=== PATIENT | female | born 1945 | race Caucasian/White ===

== ENCOUNTER 2021-01-18 07:19 | Day surgery (SDC) | payer MEDICARE, BC ==
[~2021-01-18 07:19] MED LIST: Lactated Ringers 1,000 ML IV SCH; Lidocaine 2% 5 ML SDV ONE; Propofol 200 MG/20 ML SDV ONE; Sodium Chloride 0.9% 10 ML SDV IV PRN; Sodium Chloride 0.9% 10 ML Syringe FLUSH PRN; Sodium Chloride 0.9% 2.5 ML Syringe FLUSH PRN; fentaNYL 100 MCG/2 ML SDV ONE
--- NOTE | 2021-01-18 07:58 | PCM.PREANE ---
Preanesthetic Assessment - Anesthesia/Transfusion/Family Hx Anesthesia History: Prior Anesthesia Without Reaction Family History of Anesthesia Reaction: No Transfusion History: No Prior Transfusion(s) - Review of Systems General: No Symptoms Pulmonary: No Symptoms Cardiovascular: No Symptoms Gastrointestinal: No Symptoms Neurological: No Symptoms Other: Reports: None - Physical Assessment NPO Status Date: 01/18/21 NPO Status Time: 06:30 Vital Signs: Last Vital Signs Temp 36.4 C 01/18/21 07:26 Pulse 62 01/18/21 07:26 Resp 15 01/18/21 07:26 BP 115/52 L 01/18/21 07:26 Pulse Ox 100 01/18/21 07:26 Height: 1.42 m Weight: 49.895 kg ASA Class: 3 Mental Status: Alert & Oriented x3 Airway Class: Mallampati = 2 Dentition: Reports: [place](s) Thyro-Mental Finger Breadths: 3 Mouth Opening Finger Breadths: 3 ROM/Head Extension: Full Lungs: Clear to Auscultation, Normal Respiratory Effort Cardiovascular: Regular Rate, Regular Rhythm - Allergies Allergies/Adverse Reactions: Allergies Allergy/AdvReac Type Severity Reaction Status Date / Time No Known Allergies Allergy Verified 01/12/21 09:16 - Acknowledgements Anesthesia Type Planned: MAC (The patient understands and accepts the anesthetic risks and benefits of MAC. All questions answered. Consent signed. ) Pt an Appropriate Candidate for the Planned Anesthesia: Yes Alternatives and Risks of Anesthesia Discussed w Pt/Guardian: Yes Pt/Guardian Understands and Agrees with Anesthesia Plan: Yes PreAnesthesia Questionnaire HEENT History: Reports: None Cardiovascular History: Reports: High Cholesterol, PVD (left femoral stent-on aspirin. STOPPED ASPIRIN 7 DAYS AGO.), Other (See Below) Other Cardiovascular History: "white coat syndrome", carotid artery stenosis- stable, asymptomatic, due for repeat Carotid Ultrasound February 2021. 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: Musculoskeletal History: Reports: Osteoporosis, Other (See Below) (osteomalacia, osteopenia) Neurological History: Reports: TIA (15 YEARS AGO) Psychiatric History: Reports: Anxiety, Depression, Other (See Below) (ALERT, oriented to person, place, and time.) Endocrine/Metabolic History: Reports: Hypothyroidism, Vitamin D Deficiency Hematologic History: Reports: None Immunologic History: Reports: None Oncologic (Cancer) History: Reports: Lymphoma Dermatologic History: Reports: None - Infectious Disease History Infectious Disease History: Reports: Chicken Pox, Mumps, Other (See Below) (COVID NEGATIVE (JANUARY 2021)) - Past Surgical History Head Surgeries/Procedures: Reports: None HEENT Surgical History: Reports: Cataract Surgery, LASIK Cardiovascular Surgical History: Reports: Vascular Surgery, Other (See Below) Other Cardiovascular Surgeries/Procedures: arterial stent placement-left groin Respiratory Surgical History: Reports: None GI Surgical History: Reports: Appendectomy, Colonoscopy, EGD, Other (See Below) Other GI Surgeries/Procedures: splenectomy for lymphoma, hx of exploratory laparotomy Female Surgical History: Reports: Section, Hysterectomy, Salpingo- Oophorectomy Endocrine Surgical History: Reports: None Neurological Surgical History: Reports: None Musculoskeletal Surgical History: Reports: None Oncologic Surgical History: Reports: Other (See Below) Other Oncologic Surgeries/Procedures: splenectomy Dermatological Surgical History: Reports: None - History Comment History Comment: etoh "2-3 x a year. - SUBSTANCE USE Tobacco Use Status *Q: Former Tobacco User (QUIT 15 years ago.) Tobacco Use Within Last Twelve Months: No Recreational Drug Use History: No - HOME MEDS Home Medications: Home Meds Aspirin 81 mg PO BRK 07/14/16 [History] Levothyroxine 75 mcg PO SUTUTHSA@07/14/16 [History] Sertraline HCl 50 mg PO DAILY 07/14/16 [History] atorvaSTATin Calcium [Atorvastatin Calcium] 40 mg PO BEDTIME 07/14/16 [History] Acyclovir 400 mg PO BID 05/26/18 [History] Levothyroxine [Synthroid] 25 mcg PO MOWEFR@05/26/18 [History] Biotin 5,000 mcg PO DAILY 01/12/21 [History] Cholecalciferol (Vitamin D3) [Vitamin D3] 1,000 units PO DAILY 01/12/21 [History] Denosumab [Prolia] 1 injection IM ASDIRECTED 01/12/21 [History] - CURRENT (IN HOUSE) MEDS Current Meds: Current Medications Lactated Ringer's (Ringers, Lactated) 1,000 mls @ 125 mls/hr IV ASDIRECTED [facility] Last Admin: 01/18/21 07:35 Dose: 125 mls/hr Documented by: Sodium Chloride (Sodium Chloride 0.9% 10 Ml Syringe) 10 ml FLUSH ASDIRECTED PRN PRN Reason: Keep Vein Open Sodium Chloride (Sodium Chloride 0.9% 2.5 Ml Syringe) 2.5 ml FLUSH ASDIRECTED PRN PRN Reason: Keep Vein Open Sodium Chloride (Sodium Chloride 0.9% 10 Ml Syringe) 10 ml FLUSH ASDIRECTED PRN PRN Reason: Keep Vein Open Sodium Chloride (Sodium Chloride 0.9% 2.5 Ml Syringe) 2.5 ml FLUSH ASDIRECTED PRN PRN Reason: Keep Vein Open Sodium Chloride (Sodium Chloride 0.9% 10 Ml Sdv) 10 ml IV ASDIRECTED PRN PRN Reason: IV Use Discontinued Medications Fentanyl (Fentanyl 100 Mcg/2 Ml Sdv) Confirm Administered Dose 100 mcg .ROUTE .STK-MED ONE Stop: 01/18/21 07:15 Lidocaine (Lidocaine 2% 5 Ml Sdv) Confirm Administered Dose 5 ml .ROUTE .STK-MED ONE Stop: 01/18/21 07:14 Propofol (Propofol 200 Mg/20 Ml Sdv) Confirm Administered Dose 200 mg .ROUTE .STK-MED ONE Stop: 01/18/21 07:15
[2021-01-18] MEDS ORDERED: Naloxone 0.4 MG/ML Syringe IVPUSH PRN (09:12)
[2021-01-18] MEDS ORDERED: Albuterol 0.083% 2.5 MG/3 ML Neb Soln NEB PRN (09:12)
[2021-01-18] MEDS ORDERED: 50% Dextrose in Water 50 ML Syringe IVPUSH PRN (09:12)
[2021-01-18] MEDS ORDERED: fentaNYL 100 MCG/2 ML SDV IVPUSH PRN (09:12)
[2021-01-18] MEDS ORDERED: EPINEPHrine 1:10,000 1 MG/10 ML Syringe IVPUSH PRN (09:12)
[2021-01-18] MEDS ORDERED: Atropine 0.1 MG/ML 10 ML Syringe IVPUSH PRN ×2 (09:12)
--- NOTE | 2021-01-18 09:30 | PCM.POSTAN ---
POST ANESTHESIA ASSESSMENT - MENTAL STATUS Mental Status: Alert, Oriented - VITAL SIGNS Vital Signs: Last Vital Signs Temp 36.4 C 01/18/21 07:26 Pulse 59 L 01/18/21 09:26 Resp 10 L 01/18/21 09:26 BP 133/53 L 01/18/21 09:26 Pulse Ox 95 01/18/21 09:26 - RESPIRATORY Respiratory Status: Respiratory Rate WNL, Airway Patent, O2 Saturation Stable - CARDIOVASCULAR CV Status: Pulse Rate WNL, Blood Pressure Stable - GASTROINTESTINAL GI Status: No Symptoms - PAIN Pain Score: 0 - POST OP HYDRATION Hydration Status: Adequate & Stable - OBSERVATIONS Free Text/Narrative:: No anesthesia problems
[2021-01-18 09:46] VITALS: BP 135/62; PULSE 58
--- NOTE | 2021-01-18 09:53 | PCM.OPNOTE ---
- General Post-Op/Procedure Note Date of Surgery/Procedure: 01/18/21 Operative Procedure(s): Sigmoidoscopy Findings: Unable to pass scope past 65cm due to tight corner and likely abdominal adhesions. Diverticulosis throughout sigmoid colon. Rectal polyp Pre Op Diagnosis: Screening colonoscopy Post-Op Diagnosis: Rectal polyp, diverticulosis Anesthesia Technique: [facility] [place] Primary Surgeon: Angelika Kraft Complications: Unable to complete full colonoscopy due to tight corner Condition: Good Free Text/Narrative:: Intake & Output 01/17/21 01/18/21 01/18/21 22:59 06:59 14:59 Intake Total 850 Balance 850
--- NOTE | 2021-01-18 09:56 | PCM48HPAN ---
Post Anesthesia Note - EVALUATION WITHIN 48HRS OF ANESTHETIC Vital Signs in Normal Range: Yes Patient Participated in Evaluation: Yes Respiratory Function Stable: Yes Airway Patent: Yes Cardiovascular Function Stable: Yes Hydration Status Stable: Yes Pain Control Satisfactory: Yes Nausea and Vomiting Control Satisfactory: Yes Mental Status Recovered: Yes Vital Signs: Last Vital Signs Temp 36.8 C 01/18/21 09:29 Pulse 58 L 01/18/21 09:29 Resp 14 01/18/21 09:29 BP 135/62 01/18/21 09:29 Pulse Ox 93 L 01/18/21 09:29 - COMMENTS/OBSERVATIONS Free Text/Narrative:: The patient has no complaints at this time. There were no apparent anesthetic complications at this time. Discharge home per criteria.
--- NOTE | 2021-01-18 19:51 | OR ---
SURGEON: ANGELIKA KRAFT MD DATE OF PROCEDURE: 01/18/2021 PREOPERATIVE DIAGNOSIS: Screening colonoscopy. POSTOPERATIVE DIAGNOSES: Diverticulosis, rectal polyp. PROCEDURE PERFORMED: Sigmoidoscopy. PRIMARY SURGEON: Angelika Kraft MD ANESTHESIA: MAC. INSTRUMENT USED: Olympus colonoscope. EXTENT OF EXAM: 65 cm into the colon, at the descending colon-sigmoid colon junction. PREPARATION: Good. LIMITATIONS: Tight corner at 60 cm and unable to pass the scope any further. COMPLICATIONS: None. INDICATIONS: The patient is a 75-year-old female who presented to my clinic for a screening colonoscopy. She had one 11 years ago, which was normal. The patient has a history of multiple open abdominal surgeries. The patient and I discussed the need for screening colonoscopy. I explained the procedure, expected perioperative course, and the risks. She verbalized understanding and wishes to proceed. PROCEDURE IN DETAIL: The patient was brought into the endoscopy suite and placed in a left lateral decubitus position. A time-out was completed verifying the patient's name, age, date of , allergies, and procedure to be performed. Monitored anesthesia care was induced and continuous oxygen was provided via nasal cannula throughout the procedure. After adequate sedation was achieved, a digital rectal exam was performed. This exam was within normal limits. A well-lubricated colonoscope was inserted in the rectum and advanced under direct visualization through the sigmoid colon. The patient was noted to have scattered diverticula throughout the sigmoid colon. At 60 cm, the patient had a tight turn within the colonic lumen. I was able to the scope safely past this area, however, this became a fixed point to which I could not pass my scope any further. The patient was laid on her back. Pressure was applied to the abdomen externally. I removed the scope and reinserted it, but was unable to traverse past this area. To avoid any damage to the colon itself, I decided to not attempt to pass the scope any further. A photograph was taken. The scope was then fully withdrawn while examining the color, texture, anatomy, and integrity of the mucosa of the sigmoid colon. Again, no polyps were found and there were scattered diverticula throughout. The scope was brought into the rectum and retroflexed. Upon retroflexion, there was a small polyp just proximal to the hemorrhoidal columns. This was removed using cold biopsy forceps and sent to pathology, labeled as rectal polyp. Hemostasis was achieved. The scope was then straightened out and fully withdrawn. The patient tolerated the procedure well and was taken to the PACU in stable condition. ENDOSCOPIC DIAGNOSES: Rectal polyp, diverticulosis. RECOMMENDATIONS: I visited with the patient in the postoperative care area. I will see her in clinic in 2 weeks to discuss her biopsy results and any further screening tests that may be done. KALI MANRIQUEZ /[id number]
== END 2021-01-18 10:10 | disposition home or self-care (01) ==
LOC: MW.SDS 07:19
PROVIDERS: ATTEND Surgery
DX: Z12.11 Encounter for screening for malignant neoplasm of colon (principal); K62.1 Rectal polyp; K57.30 Diverticulosis of large intestine without perforation or abscess without bleeding; I12.9 Hypertensive chronic kidney disease with stage 1 through stage 4 chronic kidney disease, or unspecified chronic kidney disease; N18.9 Chronic kidney disease, unspecified; E78.5 Hyperlipidemia, unspecified; E03.9 Hypothyroidism, unspecified; Z86.73 Personal history of transient ischemic attack (TIA), and cerebral infarction without residual deficits; E55.9 Vitamin D deficiency, unspecified; Z79.899 Other long term (current) drug therapy; Z98.890 Other specified postprocedural states; Z79.82 Long term (current) use of aspirin; Z79.890 Hormone replacement therapy; M81.0 Age-related osteoporosis without current pathological fracture; Z87.891 Personal history of nicotine dependence
CPT/HCPCS: 45331; 88305; J2704; J7120; J3010

== ENCOUNTER 2021-09-14 16:04 | Emergency (ER) | payer MEDICARE, BC ==
[2021-09-14] MEDS ORDERED: Sodium Chloride 0.9% 10 ML Syringe FLUSH PRN (16:29)
[2021-09-14] MEDS ORDERED: Sodium Chloride 0.9% 2.5 ML Syringe FLUSH PRN (16:29)
[2021-09-14] MEDS ORDERED: Nitroglycerin 2% Oint 1 GM UD Packet TOP ONE (16:34)
--- NOTE | 2021-09-14 16:43 | EDM.PDOC ---
ED HPI GENERAL MEDICAL PROBLEM - General Chief Complaint: Chest Pain Stated Complaint: CHEST PAINS Time Seen by Provider: 09/14/21 16:39 Source of Information: Reports: Patient - History of Present Illness INITIAL COMMENTS - FREE TEXT/NARRATIVE: 75-year-old female was called because her Zio patch showed significant long pauses. She had this placed for lightheadedness and palpitations. Patient has had no symptoms today. She feels better than she did when she had the patch on several weeks ago. Patient denies any chest pain at the present time. No shortness of breath. No exacerbating relieving factors. Patient is asymptomatic at present - Related Data Allergies Allergy/AdvReac Type Severity Reaction Status Date / Time No Known Allergies Allergy Verified 09/14/21 16:23 Home Meds: Home Meds Aspirin 81 mg PO BRK 07/14/16 [History] Levothyroxine 75 mcg PO SUTUTHSA@07/14/16 [History] Sertraline HCl 50 mg PO DAILY 07/14/16 [History] atorvaSTATin Calcium [Atorvastatin Calcium] 40 mg PO BEDTIME 07/14/16 [History] Acyclovir 400 mg PO BID 05/26/18 [History] Levothyroxine [Synthroid] 25 mcg PO MOWEFR@05/26/18 [History] Biotin 5,000 mcg PO DAILY 01/12/21 [History] Cholecalciferol (Vitamin D3) [Vitamin D3] 1,000 units PO DAILY 01/12/21 [History] Denosumab [Prolia] 1 injection IM ASDIRECTED 01/12/21 [History] Past Medical History HEENT History: Reports: None Cardiovascular History: Reports: High Cholesterol, PVD, Other (See Below) Other Cardiovascular History: "white coat syndrome", carotid artery stenosis- stable, asymptomatic, due for repeat Carotid Ultrasound February 2021. 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: Musculoskeletal History: Reports: Osteoporosis, Other (See Below) Neurological History: Reports: TIA Psychiatric History: Reports: Anxiety, Depression, Other (See Below) Endocrine/Metabolic History: Reports: Hypothyroidism, Vitamin D Deficiency Hematologic History: Reports: None Immunologic History: Reports: None Oncologic (Cancer) History: Reports: Lymphoma Dermatologic History: Reports: None - Infectious Disease History Infectious Disease History: Reports: Chicken Pox, Mumps, Other (See Below) - Past Surgical History Head Surgeries/Procedures: Reports: None HEENT Surgical History: Reports: Cataract Surgery, LASIK Cardiovascular Surgical History: Reports: Vascular Surgery, Other (See Below) Other Cardiovascular Surgeries/Procedures: arterial stent placement-left groin Respiratory Surgical History: Reports: None GI Surgical History: Reports: Appendectomy, Colonoscopy, EGD, Other (See Below) Other GI Surgeries/Procedures: splenectomy for lymphoma, hx of exploratory laparotomy Female Surgical History: Reports: Section, Hysterectomy, Salpingo- Oophorectomy Endocrine Surgical History: Reports: None Neurological Surgical History: Reports: None Musculoskeletal Surgical History: Reports: None Oncologic Surgical History: Reports: Other (See Below) Other Oncologic Surgeries/Procedures: splenectomy Dermatological Surgical History: Reports: None - History Comment History Comment: etoh "2-3 x a year. Social & Family History - Family History Family Medical History: No Pertinent Family History - Tobacco Use Tobacco Use Status *Q: Former Tobacco User Used Tobacco, but Quit: Yes Month/Year Tobacco Last Used: unknown - Caffeine Use Caffeine Use: Reports: Coffee - Recreational Drug Use Recreational Drug Use: No ED ROS GENERAL - Review of Systems Review Of Systems: Comprehensive ROS is negative, except as noted in HPI. ED EXAM, GENERAL - Physical Exam Exam: See Below Free Text/Narrative:: CONSTITUTIONAL: well appearing in no acute distress SKIN: Warm, dry, and intact without rash HENT: Normocephalic, atraumatic, PULMONARY: clear to ausculation bilaterally. No rales, rhonchi, wheezing CARDIOVASCULAR: regular rate, No murmur, rubs, or gallops GASTROINTESTINAL: soft, nondistended, nontender NEUROLOGIC: normal speech, sensorimotor function grossly intact MUSCULOSKELETAL: no gross deformities, atraumatic PSYCHIATRIC: normal mood and affect #1 Interpretation Time: 16:16 EKG Interpretation Comments: 52, sinus bradycardia, there is some ST depression in inferior leads and lateral precordial leads. There is half millimeter J-point elevation in aVL. Old EKG does not have the significant findings. Patient rhythm strip from Zio patch she can see several of the leads with ST depression. Given the fact this patient is completely asymptomatic and she was just called in as a result of getting the results of her patch this is thought to be less likely from acute ACS #2 Interpretation EKG Interpretation Comments: 1649. 52, sinus bradycardia, ST depression in inferior and lateral precordial leads. No realistic ST elevation in aVL or reciprocal changes Course - Vital Signs Text/Narrative:: initial BP 260. After NTG paste 210. significant percentage reduction. Pt states she has bad white coat hypertension and this always happens Patient presents to the emergency department as outlined above. Patient's monitoring strips do show bouts of significant pauses as well as some wide- complex tach he dysrhythmia and SVT. I spoke to the floor molder, Dr. Elizondo who recommends transfer for consideration of pacemaker plus or minus ICD. Patient is without symptoms here. Her blood pressure was elevated. I did give her Nitropatch with improvement of blood pressure to a significant percentage. I do not want to get her too low. Furthermore she endorses that she has very bad white coat syndrome so some Ativan was given. This can be reassessed. Otherwise patient is without bouts of dysrhythmia here is well-appearing and will be transferred for higher level of care for continued treatment and management Last Recorded V/S: Last Vital Signs Temp 36.1 C 09/14/21 16:25 Pulse 53 L 09/14/21 17:23 Resp 18 09/14/21 17:23 BP 244/91 H 09/14/21 17:23 Pulse Ox 97 09/14/21 17:23 - Orders/Labs/Meds Orders: Active Orders 24 hr Category Date Time Status Cardiac Monitoring [RC] . DIRECTED Care 09/14/21 16:30 Active COVID-19/FLU A+B [MOLEC] Stat Lab 09/14/21 17:47 Received Sodium Chloride 0.9% [Saline Flush] Med 09/14/21 16:29 Active 10 ml FLUSH ASDIRECTED PRN Sodium Chloride 0.9% [Saline Flush] Med 09/14/21 16:29 Active 2.5 ml FLUSH ASDIRECTED PRN Saline Lock Insert [OM.PC] Stat Oth 09/14/21 16:30 Ordered Medication Orders Sodium Chloride (Sodium Chloride 0.9% 10 Ml Syringe) 10 ml FLUSH ASDIRECTED PRN PRN Reason: Keep Vein Open Last Admin: 09/14/21 16:42 Dose: 10 ml Documented by: IGNACIO Sodium Chloride (Sodium Chloride 0.9% 2.5 Ml Syringe) 2.5 ml FLUSH ASDIRECTED PRN PRN Reason: Keep Vein Open Last Admin: 09/14/21 16:42 Dose: 2.5 ml Documented by: IGNACIO Labs: Laboratory Tests 09/14/21 09/14/21 09/14/21 Range/Units 16:08 16:08 16:08 WBC 10.57 (4.0-11.0) K/uL RBC 4.51 (4.30-5.90) M/uL Hgb 13.9 (12.0-16.0) g/dL Hct 43.2 (36.0-46.0) % MCV 95.8 (80.0-98.0) fL MCH 30.8 (27.0-32.0) pg MCHC 32.2 (31.0-37.0) g/dL RDW Std Deviation 54.1 (28.0-62.0) fl RDW Coeff of Sudarshan 15 (11.0-15.0) % Plt Count 301 (150-400) K/uL MPV 12.30 H (7.40-12.00) fL Neut % (Auto) 41.8 L (48.0-80.0) % Lymph % (Auto) 45.5 H (16.0-40.0) % [place] % (Auto) 9.8 (0.0-15.0) % Eos % (Auto) 2.5 (0.0-7.0) % Baso % (Auto) 0.4 (0.0-1.5) % Neut # (Auto) 4.4 (1.4-5.7) K/uL Lymph # (Auto) 4.8 H (0.6-2.4) K/uL [place] # (Auto) 1.0 H (0.0-0.8) K/uL Eos # (Auto) 0.3 (0.0-0.7) K/uL Baso # (Auto) 0.0 (0.0-0.1) K/uL Nucleated RBC % 0.0 /100WBC Nucleated RBCs # 0 K/uL INR 0.97 Sodium 141 (136-145) mmol/L Potassium 3.9 (3.5-5.1) mmol/L Chloride 105 (98-107) mmol/L Carbon Dioxide 28.4 (21.0-32.0) mmol/L BUN 16 (7.0-18.0) mg/dL Creatinine 1.3 H (0.6-1.0) mg/dL Est Cr Clr Drug Dosing 26.03 mL/min Estimated GFR (MDRD) 39.7 ml/min Glucose 101 (74-106) mg/dL Calcium 9.2 (8.5-10.1) mg/dL Magnesium 2.2 (1.8-2.4) mg/dL Total Bilirubin 0.8 (0.2-1.0) mg/dL AST 23 (15-37) IU/L ALT 28 (14-63) IU/L Alkaline Phosphatase 80 (46-116) U/L Troponin I < 0.050 (0.000-0.056) ng/mL Total Protein 8.4 H (6.4-8.2) g/dL Albumin 4.1 (3.4-5.0) g/dL Globulin 4.3 H (2.6-4.0) g/dL Albumin/Globulin Ratio 1.0 (0.9-1.6) TSH, Ultra Sensitive 0.96 (0.36-3.74) uIU/mL Meds: Medications Generic Name Dose Route Start Last Admin Trade Name Freq PRN Reason Stop Dose Admin Sodium Chloride 10 ml 09/14/21 16:29 09/14/21 16:42 Sodium Chloride 0.9% 10 Ml Syringe FLUSH 10 ml ASDIRECTED PRN Administration Keep Vein Open Sodium Chloride 2.5 ml 09/14/21 16:29 09/14/21 16:42 Sodium Chloride 0.9% 2.5 Ml Syringe FLUSH 2.5 ml ASDIRECTED PRN Administration Keep Vein Open Discontinued Medications Generic Name Dose Route Start Last Admin Trade Name Freq PRN Reason Stop Dose Admin Lorazepam 1 mg 09/14/21 17:45 Lorazepam 2 Mg/Ml Sdv IVPUSH 09/14/21 17:46 ONETIME ONE Nitroglycerin 2 gm 09/14/21 16:34 09/14/21 16:43 Nitroglycerin 2% Oint 1 Gm Ud Packet TOP 09/14/21 16:35 2 gm ONETIME ONE Administration Nitroglycerin Confirm 09/14/21 17:06 Nitroglycerin 2% Oint 1 Gm Ud Packet Administered 09/14/21 17:07 Dose 1 gm .ROUTE .STK-MED ONE Departure - Departure Time of Disposition: 18:00 Disposition: DC/Tfer to Medicaid [facility] Condition: Good Clinical Impression: Dysrhythmia, cardiac, Hypertension - Discharge Information Referrals: PCP,None [Primary Care Provider] - Forms: ED Department Discharge Sepsis Event Note (ED) - Evaluation Sepsis Screening Result: No Definite Risk - Focused Exam Vital Signs: Vital Signs Temp Pulse Resp BP BP Pulse Ox 09/14/21 17:23 53 L 18 244/91 H 97 09/14/21 16:25 36.1 C 58 L 18 264/94 H 264/94 H 97 - My Orders Last 24 Hours: My Active Orders 09/14/21 16:29 Sodium Chloride 0.9% [Saline Flush] 10 ml FLUSH ASDIRECTED PRN Sodium Chloride 0.9% [Saline Flush] 2.5 ml FLUSH ASDIRECTED PRN 09/14/21 16:30 Cardiac Monitoring [RC] . DIRECTED Saline Lock Insert [OM.PC] Stat 09/14/21 17:47 COVID-19/FLU A+B [MOLEC] Stat - Assessment/Plan Last 24 Hours: My Active Orders 09/14/21 16:29 Sodium Chloride 0.9% [Saline Flush] 10 ml FLUSH ASDIRECTED PRN Sodium Chloride 0.9% [Saline Flush] 2.5 ml FLUSH ASDIRECTED PRN 09/14/21 16:30 Cardiac Monitoring [RC] . DIRECTED Saline Lock Insert [OM.PC] Stat 09/14/21 17:47 COVID-19/FLU A+B [MOLEC] Stat
[2021-09-14 16:59] LABS: BLOOD UREA NITROGEN,BUN 16 mg/dL (7.0-18.0); CARBON DIOXIDE,CO2 28.4 mmol/L (21.0-32.0); CHLORIDE,CL 105 mmol/L (98-107); GLUCOSE RANDOM 101 mg/dL (74-106); POTASSIUM,K 3.9 mmol/L (3.5-5.1); SODIUM,NA 141 mmol/L (136-145)
[2021-09-14] MEDS ORDERED: Nitroglycerin 2% Oint 1 GM UD Packet ONE (17:06)
[2021-09-14 17:24] VITALS: BP 244/91; PULSE 53
--- NOTE | 2021-09-14 17:28 | CR ---
INDICATION: Chest pain TECHNIQUE: Chest 1 view. COMPARISON: FINDINGS: Cardiovascular and mediastinum: Heart size and vasculature are normal in caliber and appearance. Mediastinum is within normal limits. Left-sided port catheter tip in the proximal SVC. Lungs and pleural space: Lungs are clear. No sign of infiltrate or mass. No sign of pleural effusion. No pneumothorax. Bones and soft tissues: No significant findings. IMPRESSION: Unremarkable chest. Dictated by Cachorro Cantu MD @ 09/14/2021 5:27:35 PM (Electronically Signed)
[2021-09-14] MEDS ORDERED: LORazepam 2 MG/ML SDV IVPUSH ONE (17:45)
[2021-09-14 18:34] LABS: CORONAVIRUS COVID-19 NAA NEGATIVE (NEGATIVE); INFLUENZA A NAA NEGATIVE (NEGATIVE); INFLUENZA B NAA NEGATIVE (NEGATIVE)
== END 2021-09-14 19:52 ==
LOC: MW.ED 16:04
DX: I49.9 Cardiac arrhythmia, unspecified (principal); I12.9 Hypertensive chronic kidney disease with stage 1 through stage 4 chronic kidney disease, or unspecified chronic kidney disease; E78.00 Pure hypercholesterolemia, unspecified; N18.9 Chronic kidney disease, unspecified; E03.9 Hypothyroidism, unspecified; Z86.73 Personal history of transient ischemic attack (TIA), and cerebral infarction without residual deficits; Z79.82 Long term (current) use of aspirin; Z79.899 Other long term (current) drug therapy; Z87.891 Personal history of nicotine dependence; Z20.822 Contact with and (suspected) exposure to COVID-19
CPT/HCPCS: 0240U; 36415; 71045; 80053; 83735; 84443; 84484; 85025; 85610; 96374; 99285; A9270; J2060

== ENCOUNTER 2021-10-02 13:11 | Emergency (ER) | payer MEDICARE, BC ==
[2021-10-02 13:23] VITALS: BP 114/65; PULSE 73
--- NOTE | 2021-10-02 13:30 | EDM.PDOC ---
ED HPI GENERAL MEDICAL PROBLEM - General Chief Complaint: General Stated Complaint: EMS Time Seen by Provider: 10/02/21 13:27 Source of Information: Reports: Patient History Limitations: Reports: No Limitations - History of Present Illness INITIAL COMMENTS - FREE TEXT/NARRATIVE: Patient is a 75-year-old female who recently had a cardiac bypass presents today because she just does not feel better. States she still has some shortness of breath. She has had no chest pain but states she is feels short of breath weak and tired and is unsure was going on she also had decreased p.o. intake. Denies any abdominal pain vomiting diarrhea or other complaints. - Related Data Allergies Allergy/AdvReac Type Severity Reaction Status Date / Time No Known Allergies Allergy Verified 10/02/21 13:23 Home Meds: Home Meds Aspirin 81 mg PO BRK 07/14/16 [History] Levothyroxine 75 mcg PO SUTUTHSA@07/14/16 [History] Sertraline HCl 50 mg PO DAILY 07/14/16 [History] atorvaSTATin Calcium [Atorvastatin Calcium] 40 mg PO BEDTIME 07/14/16 [History] Levothyroxine [Synthroid] 50 mcg PO MOWEFR@05/26/18 [History] Cholecalciferol (Vitamin D3) [Vitamin D3] 5,000 units PO DAILY 01/12/21 [History] Denosumab [Prolia] 1 injection IM ASDIRECTED 01/12/21 [History] Acyclovir 400 mg PO DAILY 10/02/21 [History] Amiodarone [Cordarone] 200 mg PO BID 10/02/21 [History] Biotin 1 mg PO TID 10/02/21 [History] Clopidogrel [Plavix] 75 mg PO DAILY 10/02/21 [History] Ferrous Sulfate 325 mg PO BIDMEALS 10/02/21 [History] amLODIPine [Norvasc] 2.5 mg PO DAILY 10/02/21 [History] Past Medical History HEENT History: Reports: None Cardiovascular History: Reports: High Cholesterol, PVD, Other (See Below) Other Cardiovascular History: "white coat syndrome", carotid artery stenosis- stable, asymptomatic, due for repeat Carotid Ultrasound February 2021. Respiratory History: Reports: None Gastrointestinal History: Reports: None Genitourinary History: Reports: Chronic Renal Insuffiency HOSPITALIST History: Reports: Musculoskeletal History: Reports: Osteoporosis, Other (See Below) Neurological History: Reports: TIA Psychiatric History: Reports: Anxiety, Depression, Other (See Below) Endocrine/Metabolic History: Reports: Hypothyroidism, Vitamin D Deficiency Hematologic History: Reports: None Immunologic History: Reports: None Oncologic (Cancer) History: Reports: Lymphoma Dermatologic History: Reports: None - Infectious Disease History Infectious Disease History: Reports: Chicken Pox, Mumps, Other (See Below) - Past Surgical History Head Surgeries/Procedures: Reports: None HEENT Surgical History: Reports: Cataract Surgery, LASIK Cardiovascular Surgical History: Reports: Vascular Surgery, Other (See Below) Other Cardiovascular Surgeries/Procedures: arterial stent placement-left groin Respiratory Surgical History: Reports: None GI Surgical History: Reports: Appendectomy, Colonoscopy, EGD, Other (See Below) Other GI Surgeries/Procedures: splenectomy for lymphoma, hx of exploratory laparotomy Female Surgical History: Reports: Section, Hysterectomy, Salpingo- Oophorectomy Endocrine Surgical History: Reports: None Neurological Surgical History: Reports: None Musculoskeletal Surgical History: Reports: None Oncologic Surgical History: Reports: Other (See Below) Other Oncologic Surgeries/Procedures: splenectomy Dermatological Surgical History: Reports: None - History Comment History Comment: etoh "2-3 x a year. Social & Family History - Family History Family Medical History: No Pertinent Family History - Tobacco Use Second Hand Smoke Exposure: No - Caffeine Use Caffeine Use: Reports: None - Recreational Drug Use Recreational Drug Use: No ED ROS GENERAL - Review of Systems Review Of Systems: See Below Constitutional: Reports: Weakness HEENT: Reports: No Symptoms Respiratory: Reports: Shortness of Breath Cardiovascular: Reports: No Symptoms Endocrine: Reports: No Symptoms GI/Abdominal: Reports: No Symptoms : Reports: No Symptoms Musculoskeletal: Reports: No Symptoms Skin: Reports: No Symptoms Neurological: Reports: No Symptoms Psychiatric: Reports: No Symptoms Hematologic/Lymphatic: Reports: No Symptoms Immunologic: Reports: No Symptoms ED EXAM, GENERAL - Physical Exam Exam: See Below Exam Limited By: No Limitations General Appearance: Alert, WD/WN, No Apparent Distress Eye Exam: Bilateral Eye: EOMI, PERRL Nose: Normal Inspection Head: Atraumatic, Normocephalic Respiratory/Chest: No Respiratory Distress, Lungs Clear, Normal Breath Sounds, Other (Bruising and sternal scar from recent surgery) Cardiovascular: Normal Peripheral Pulses, Regular Rate, Rhythm GI/Abdominal: Normal Bowel Sounds, Soft, Non-Tender Back Exam: Normal Inspection Extremities: Normal Inspection, Normal Range of Motion, Other (Bruising to the extremities lower from where they took the vessels for the bypass) Neurological: Alert, Oriented #1 Interpretation EKG Date: 10/02/21 Time: 13:54 Rhythm: Other (Juntional rhythm) Rate (Beats/Min): 38 ST-T: Normal Course - Vital Signs Last Recorded V/S: Last Vital Signs Temp 97.4 F 10/02/21 13:21 Pulse 73 10/02/21 13:21 Resp 20 10/02/21 13:21 BP 114/65 10/02/21 13:21 Pulse Ox 96 10/02/21 13:21 - Orders/Labs/Meds Orders: Active Orders 24 hr Category Date Time Status UA W/BERNARDO RFLX IF INDICATED [URIN] Stat Lab 10/02/21 15:00 Ordered Sodium Chloride 0.9% [Normal Saline] 500 ml Med 10/02/21 16:00 Active IV .BOLUS Medication Orders Sodium Chloride (Normal Saline) 500 mls @ 999 mls/hr IV .BOLUS JOHNNY Last Admin: 10/02/21 15:55 Dose: 999 mls/hr Documented by: [email or web address] Labs: Laboratory Tests 10/02/21 10/02/21 10/02/21 Range/Units 14:29 14:29 14:29 WBC 21.35 H (4.0-11.0) K/uL RBC 2.68 L (4.30-5.90) M/uL Hgb 8.1 L (12.0-16.0) g/dL Hct 25.7 L (36.0-46.0) % MCV 95.9 (80.0-98.0) fL MCH 30.2 (27.0-32.0) pg MCHC 31.5 (31.0-37.0) g/dL RDW Std Deviation 55.4 (28.0-62.0) fl RDW Coeff of Sudarshan 16 H (11.0-15.0) % Plt Count 413 H (150-400) K/uL MPV 12.70 H (7.40-12.00) fL Add Manual Diff YES Neutrophils % (Manual) 84 H (48.0-80.0) % Band Neutrophils % 1 % Lymphocytes % (Manual) 8 L (16.0-40.0) % Monocytes % (Manual) 6 (0.0-15.0) % Basophils % (Manual) 1 (0.0-1.5) % Nucleated RBC % 0.2 /100WBC Absolute Seg Neuts 17.9 H (1.4-5.7) Band Neutrophils # 0.2 Lymphocytes # (Manual) 1.7 (0.6-2.4) Monocytes # (Manual) 1.3 H (0.0-0.8) Basophils # (Manual) 0.2 H (0.0-0.1) Nucleated RBCs # 0 K/uL Plt Morphology Comment Poikilocytosis 2+ MODERATE Acanthocytes (Spur) 2+ MODERATE Sodium 138 (136-145) mmol/L Potassium 5.5 H (3.5-5.1) mmol/L Chloride 103 (98-107) mmol/L Carbon Dioxide 22.1 (21.0-32.0) mmol/L BUN 68 H (7.0-18.0) mg/dL Creatinine 3.9 H (0.6-1.0) mg/dL Est Cr Clr Drug Dosing 8.68 mL/min Estimated GFR (MDRD) 11.2 ml/min Glucose 97 (74-106) mg/dL Calcium 8.3 L (8.5-10.1) mg/dL Total Bilirubin 2.0 H (0.2-1.0) mg/dL AST 1210 H (15-37) IU/L ALT 474 H (14-63) IU/L Alkaline Phosphatase 149 H (46-116) U/L Creatine Kinase 90 (26-308) U/L Troponin I 0.114 H* (0.000-0.056) ng/mL B-Natriuretic Peptide 840 H (<100) PG/ML Total Protein 7.3 (6.4-8.2) g/dL Albumin 3.6 (3.4-5.0) g/dL Globulin 3.7 (2.6-4.0) g/dL Albumin/Globulin Ratio 1.0 (0.9-1.6) Meds: Medications Generic Name Dose Route Start Last Admin Trade Name Freq PRN Reason Stop Dose Admin Sodium Chloride 500 mls @ 999 mls/hr 10/02/21 16:00 10/02/21 15:55 Normal Saline IV 999 mls/hr .BOLUS JOHNNY Administration Discontinued Medications Generic Name Dose Route Start Last Admin Trade Name Andreea PRN Reason Stop Dose Admin Calcium Gluconate 1 gm 10/02/21 15:29 10/02/21 15:39 Calcium Gluconate 10% 1 Gm/10 Ml Sdv IVPUSH 10/02/21 15:30 1 gm ONETIME ONE Administration - Re-Assessments/Exams Free Text/Narrative Re-Assessment/Exam: 10/02/21 15:37 Please 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 Patel about the patient states he made a pacemaker she is continue to be bradycardic we will transfer patient over patient remained stable she does have some elevated LFTs we will do a bedside cardiac ultrasound as well. 10/02/21 17:46 Patient ultrasound is negative patient was given a small bolus of 500 cc fluids as her creatinine is elevated. Patient seems to be doing well having the fluid patient will be transferred by flight as there are no ground transportation available. Departure - Departure Time of Disposition: 15:37 Disposition: Home, Self-Care 01 Condition: Good Clinical Impression: Bradycardia - Discharge Information Forms: ED Department Discharge Critical Care Note - Critical Care Note Total Time (mins): 45 Comments: Critical Care Procedure Note Authorized and Performed by: Dr. Mclean Total critical care time: Approximately Due to a high probability of clinically significant, life threatening deterioration, the patient required my highest level of preparedness to intervene emergently and I personally spent this critical care time directly and personally managing the patient. This critical care time included obtaining a history; examining the patient; pulse oximetry; ordering and review of studies; arranging urgent treatment with development of a management plan; evaluation of patient's response to treatment; frequent reassessment; and, discussions with other providers. This critical care time was performed to assess and manage the high probability of imminent, life-threatening deterioration that could result in multi-organ failure. It was exclusive of separately billable procedures and treating other patients and teaching time. Sepsis Event Note (ED) - Evaluation Sepsis Screening Result: No Definite Risk - Focused Exam Vital Signs: Vital Signs Temp Pulse Resp BP Pulse Ox 10/02/21 13:21 97.4 F 73 20 114/65 96 - My Orders Last 24 Hours: My Active Orders 10/02/21 15:00 UA W/BERNARDO RFLX IF INDICATED [URIN] Stat 10/02/21 16:00 Sodium Chloride 0.9% [Normal Saline] 500 ml IV .BOLUS - Assessment/Plan Last 24 Hours: My Active Orders 10/02/21 15:00 UA W/BERNARDO RFLX IF INDICATED [URIN] Stat 10/02/21 16:00 Sodium Chloride 0.9% [Normal Saline] 500 ml IV .BOLUS Plan: Is a 75-year-old female brought in today because she does not feel better after bypass that she feels short of breath weak and fatigued. Will obtain labs x- rays and reassess.
--- NOTE | 2021-10-02 14:03 | CR ---
INDICATION: Recent bypass and shortness of breath. TECHNIQUE: Chest 1 view. COMPARISON: Chest radiograph 09/14/2021. FINDINGS: Interval postoperative changes in the chest with sternotomy and mediastinal clips. Retained epicardial pacer wires. There is a left subclavian Port-A-Cath in place. The catheter appears shorter than on prior exam and has either been pulled back or broken, although no displaced catheter fragment is identified. No focal consolidation, pleural effusion, or pneumothorax. New elevation of the right hemidiaphragm with mild right basilar atelectasis. Mild cardiomegaly. Normal pulmonary vascularity. Multiple surgical clips in the left upper quadrant. The bones are unremarkable. IMPRESSION: 1. Interval postoperative changes in the chest. 2. No acute cardiopulmonary findings. 3. Mild cardiomegaly. 4. The left sided Port-A-Cath appears shorter than on prior exam and has either been pulled back or broken, however no displaced catheter fragment is identified. Correlate clinically. Dictated by Alyssia Resendez MD @ 10/02/2021 2:02:15 PM (Electronically Signed)
[2021-10-02 15:13] LABS: CARBON DIOXIDE,CO2 22.1 mmol/L (21.0-32.0); POTASSIUM,K 5.5 mmol/L (3.5-5.1)
[2021-10-02] MEDS ORDERED: Calcium Gluconate 10% 1 GM/10 ML SDV IVPUSH ONE (15:29)
[2021-10-02] MEDS ORDERED: Sodium Chloride 0.9% 500 ML IV SCH (16:00)
--- NOTE | 2021-10-02 16:35 | US ---
INDICATION: Elevated liver enzymes. COMPARISON: CT chest, abdomen, pelvis 08/17/2014. TECHNIQUE: Real time saleem scale imaging and color Doppler analysis was performed of the right upper quadrant. FINDINGS: Liver: The liver is normal in size measuring 16.7 cm in length. Normal echogenicity. No focal liver lesions. Gallbladder: No stones or sludge. No wall thickening or pericholecystic fluid. Negative sonographic Reardon sign. Bile ducts: No biliary dilation. The common bile duct measures 3 mm in diameter. Pancreas: Normal where seen. Right kidney: The right kidney measures 10.0 cm in length. No hydronephrosis, calculus, or mass. IMPRESSION: Unremarkable exam. Dictated by Alyssia Resendez MD @ 10/02/2021 4:33:16 PM (Electronically Signed)
== END 2021-10-02 18:18 | disposition home or self-care (01) ==
LOC: MW.ED 13:11
DX: R00.1 Bradycardia, unspecified (principal); E78.00 Pure hypercholesterolemia, unspecified; N18.9 Chronic kidney disease, unspecified; E03.9 Hypothyroidism, unspecified; Z79.82 Long term (current) use of aspirin; Z79.02 Long term (current) use of antithrombotics/antiplatelets; Z79.899 Other long term (current) drug therapy
CPT/HCPCS: 36415; 71045; 76705; 80053; 82550; 83880; 84484; 85025; 93005; 96374; 99285; J0610; J7040

== ENCOUNTER 2021-10-20 17:10 | Inpatient (IN) | payer MEDICARE, BC ==
[2021-10-20] MEDS ORDERED: Albuterol/Ipratropium 3.0-0.5 MG/3 ML Neb Soln NEB ONE ×2 (18:05→19:29)
[2021-10-20] MEDS ORDERED: Sodium Chloride 0.9% 10 ML Syringe FLUSH PRN (18:05)
[2021-10-20] MEDS ORDERED: Sodium Chloride 0.9% 2.5 ML Syringe FLUSH PRN (18:05)
--- NOTE | 2021-10-20 18:09 | EDM.PDOC ---
<Sandeep Irizarry - Last Filed: 10/20/21 18:46> ED HPI GENERAL MEDICAL PROBLEM - General Chief Complaint: Respiratory Problem Stated Complaint: WALK IN REFERRAL, RECENT SURGERY, LOW OXYGEN Time Seen by Provider: 10/20/21 17:55 - History of Present Illness INITIAL COMMENTS - FREE TEXT/NARRATIVE: 75-year-old female she has a history of CAD with recent 5 vessel CABG history of recent pacemaker placed for bradycardia as well he has no prior pulmonary history. She is presenting with wheezing shortness of breath and left-sided swelling. Patient has had swelling of the left arm the left breast and the left leg since shortly prior to discharge from [place] following her initial heart surgery. Following that she ended up presenting here and being bradycardic with a positive troponin she was transferred back to [place] where she had the pacemaker placed. She was in rehab for 2 days and got home approximately 7 days ago. She has had persistent wheezing and cough since that time as well as gradually worsening swelling. No chest pain no fevers no myalgias or arthralgias but significant fatigue. Patient does not have a prior history of pulmonary disease she is not a current smoker. Patient was seen by her primary provider in clinic today a CT of the chest with and without contrast was ordered unfortunately only a CT without contrast was done. This was essentially unremarkable that showed expected postop changes but no changes in the lung parenchyma no specific explanation for the shortness of breath no pericardial effusion no significant pleural effusions no signs of severe acute pulmonary infection. She does have a history of perioperative DVT and is on Xarelto. - Related Data Allergies Allergy/AdvReac Type Severity Reaction Status Date / Time No Known Allergies Allergy Verified 10/20/21 17:34 Home Meds: Home Meds Aspirin 81 mg PO BRK 07/14/16 [History] Levothyroxine 75 mcg PO SUTUTHSA@07/14/16 [History] Sertraline HCl 50 mg PO DAILY 07/14/16 [History] Levothyroxine [Synthroid] 50 mcg PO MOWEFR@05/26/18 [History] Cholecalciferol (Vitamin D3) [Vitamin D3] 5,000 units PO DAILY 01/12/21 [History] Acyclovir 400 mg PO DAILY 10/02/21 [History] Amiodarone [Cordarone] 200 mg PO BID 10/02/21 [History] Biotin 1 mg PO TID 10/02/21 [History] Clopidogrel [Plavix] 75 mg PO DAILY 10/02/21 [History] Ferrous Sulfate 325 mg PO BIDMEALS 10/02/21 [History] amLODIPine [Norvasc] 2.5 mg PO DAILY 10/02/21 [History] Acetaminophen 325 mg PO DAILY 10/20/21 [History] Furosemide [Lasix] 20 mg PO DAILY 10/20/21 [History] Furosemide [Lasix] 20 mg PO DAILY 14 Days #14 tab 10/20/21 [Rx] Potassium Chloride 10 meq PO DAILY 10/20/21 [History] Rivaroxaban [Xarelto] 20 mg PO 10/20/21 [History] amLODIPine [Norvasc] 10 mg PO DAILY 10/20/21 [History] lisinopriL [Lisinopril] 40 mg PO DAILY 10/20/21 [History] Past Medical History HEENT History: Reports: None Cardiovascular History: Reports: High Cholesterol, PVD, Other (See Below) Other Cardiovascular History: "white coat syndrome", carotid artery stenosis- stable, asymptomatic, due for repeat Carotid Ultrasound February 2021. 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: Musculoskeletal History: Reports: Osteoporosis, Other (See Below) Neurological History: Reports: TIA Psychiatric History: Reports: Anxiety, Depression, Other (See Below) Endocrine/Metabolic History: Reports: Hypothyroidism, Vitamin D Deficiency Hematologic History: Reports: None Immunologic History: Reports: None Oncologic (Cancer) History: Reports: Lymphoma Dermatologic History: Reports: None - Infectious Disease History Infectious Disease History: Reports: Chicken Pox, Mumps, Other (See Below) - Past Surgical History Head Surgeries/Procedures: Reports: None HEENT Surgical History: Reports: Cataract Surgery, LASIK Cardiovascular Surgical History: Reports: Vascular Surgery, Other (See Below) Other Cardiovascular Surgeries/Procedures: arterial stent placement-left groin, Bipass and pacemaker placed Sep 2021 Respiratory Surgical History: Reports: None GI Surgical History: Reports: Appendectomy, Colonoscopy, EGD, Other (See Below) Other GI Surgeries/Procedures: splenectomy for lymphoma, hx of exploratory laparotomy Female Surgical History: Reports: Section, Hysterectomy, Salpingo- Oophorectomy Endocrine Surgical History: Reports: None Neurological Surgical History: Reports: None Musculoskeletal Surgical History: Reports: None Oncologic Surgical History: Reports: Other (See Below) Other Oncologic Surgeries/Procedures: splenectomy Dermatological Surgical History: Reports: None - History Comment History Comment: etoh "2-3 x a year. Social & Family History - Family History Family Medical History: No Pertinent Family History - Tobacco Use Tobacco Use Status *Q: Never Tobacco User - Caffeine Use Caffeine Use: Reports: None - Recreational Drug Use Recreational Drug Use: No ED ROS GENERAL - Review of Systems Review Of Systems: See Below Free Text/Narrative/Comment: General: No fever. Skin: No rash. Eyes: No vision problems. ENT: No sore throat. Neck: No neck stiffness. Respiratory: Per HPI Cardiac: No chest pain. Gastrointestinal: No nausea, vomiting or abdominal pain. Urinary: No dysuria. Musculoskeletal: No myalgias/arthralgias. Neurologic: No headache. ED EXAM, GENERAL - Physical Exam Exam: See Below Free Text/Narrative:: General Appearance: No acute distress, appears comfortable Skin: No rash HEENT: Normocephalic/atraumatic, sclera anicteric, mucous membranes moist Neck: Normal range of motion Chest and Lungs: Significant expiratory wheezing with prolonged expiratory phase no crackles or rhonchi Chest Wall: Median sternotomy incision is clean dry and intact some erythema over the superior portion but no drainage the right-sided pacemaker pocket has a clean dry and intact incision no tenderness warmth or erythema is noted Cardiovascular: Regular rate and rhythm, intact distal perfusion, bilateral lower extremity edema worse in the left leg than the right 1+ pitting edema in the left leg only trace pitting edema to the distal right hitchcock Abdomen: Soft, non-tender Musculoskeletal: No edema or tenderness Neurologic: Awake, alert, no obvious deficits, moving all extremities Psychiatric: Appropriate, cooperative #1 Interpretation EKG Date: 10/20/21 Time: 18:46 EKG Interpretation Comments: Atrially paced rhythm with rate of 61 there is an incomplete right bundle branch block no findings of acute ischemia there is significant artifact in V5. Departure - Departure Disposition: Refer to Observation Clinical Impression: Acute bronchitis, Hypoxia, Right heart failure - Discharge Information Prescriptions: Furosemide [Lasix] 20 mg PO DAILY 14 Days #14 tab Referrals: Leslie Holley MD [Primary Care Provider] - Forms: ED Department Discharge Additional Instructions: Your prescription went to [facility]. - Assessment/Plan Assessment:: 75-year-old female presenting with difficulty breathing. Bronchitis is certainly consideration Covid and influenza are considerations and swabs will be taken. Albuterol treatment has been ordered. Patient reportedly had some hypoxia at home here on room air she was in the low 90s currently on 1 L nasal cannula with oxygen saturation of 96%. PE considered but given the significant wheezing I think that is unlikely. There is no pneumonia on the CT scan. No immediate postoperative complications were found on the CT scan. CHF is a consideration as well EKG troponin and BNP are pending. Will reassess following breathing jose c atment. Normal lung parenchyma makes Covid much less likely. That said, flu and Covid swab pending as mentioned above. <Jonas Couch - Last Filed: 10/20/21 21:21> Course - Vital Signs Last Recorded V/S: Last Vital Signs Temp 36.6 C 10/20/21 17:36 Pulse 69 10/20/21 17:36 Resp 18 10/20/21 17:36 BP 134/62 10/20/21 17:36 Pulse Ox 92 L 10/20/21 17:36 - Orders/Labs/Meds Orders: Active Orders 24 hr Category Date Time Status Admission Status [Patient Status] [ADT] Stat ADT 10/20/21 21:17 Active Cardiac Monitoring [RC] . DIRECTED Care 10/20/21 21:17 Active RT Aerosol Therapy [RC] ASDIRECTED Care 10/20/21 19:29 Active Sodium Chloride 0.9% [Normal Saline] 500 ml Med 10/20/21 18:15 Active IV .BOLUS Sodium Chloride 0.9% [Saline Flush] Med 10/20/21 18:05 Active 10 ml FLUSH ASDIRECTED PRN Sodium Chloride 0.9% [Saline Flush] Med 10/20/21 18:05 Active 2.5 ml FLUSH ASDIRECTED PRN Saline Lock Insert [OM.PC] Stat Oth 10/20/21 18:05 Ordered Medication Orders Sodium Chloride (Normal Saline) 500 mls @ 999 mls/hr IV .BOLUS JOHNNY Last Admin: 10/20/21 18:30 Dose: 999 mls/hr Documented by: LAURITA Sodium Chloride (Sodium Chloride 0.9% 10 Ml Syringe) 10 ml FLUSH ASDIRECTED PRN PRN Reason: Keep Vein Open Last Admin: 10/20/21 18:28 Dose: 10 ml Documented by: LAURITA Sodium Chloride (Sodium Chloride 0.9% 2.5 Ml Syringe) 2.5 ml FLUSH ASDIRECTED PRN PRN Reason: Keep Vein Open Last Admin: 10/20/21 18:29 Dose: 2.5 ml Documented by: LAURITA Labs: Laboratory Tests 10/20/21 10/20/21 10/20/21 Range/Units 18:26 18:36 18:36 WBC 9.04 (4.0-11.0) K/uL RBC 3.01 L (4.30-5.90) M/uL Hgb 9.4 L (12.0-16.0) g/dL Hct 30.1 L (36.0-46.0) % MCV 100.0 H (80.0-98.0) fL MCH 31.2 (27.0-32.0) pg MCHC 31.2 (31.0-37.0) g/dL RDW Std Deviation 61.7 (28.0-62.0) fl RDW Coeff of Sudarshan 17 H (11.0-15.0) % Plt Count 233 (150-400) K/uL MPV 12.00 (7.40-12.00) fL Neut % (Auto) 72.2 (48.0-80.0) % Lymph % (Auto) 11.3 L (16.0-40.0) % [place] % (Auto) 13.6 (0.0-15.0) % Eos % (Auto) 2.5 (0.0-7.0) % Baso % (Auto) 0.4 (0.0-1.5) % Neut # (Auto) 6.5 H (1.4-5.7) K/uL Lymph # (Auto) 1.0 (0.6-2.4) K/uL [place] # (Auto) 1.2 H (0.0-0.8) K/uL Eos # (Auto) 0.2 (0.0-0.7) K/uL Baso # (Auto) 0.0 (0.0-0.1) K/uL Nucleated RBC % 0.0 /100WBC Nucleated RBCs # 0 K/uL Sodium 142 (136-145) mmol/L Potassium 4.5 (3.5-5.1) mmol/L Chloride 102 (98-107) mmol/L Carbon Dioxide 29.7 (21.0-32.0) mmol/L BUN 17 (7.0-18.0) mg/dL Creatinine 1.1 H (0.6-1.0) mg/dL Est Cr Clr Drug Dosing 30.76 mL/min Estimated GFR (MDRD) 48.2 ml/min Glucose 107 H (74-106) mg/dL Calcium 9.2 (8.5-10.1) mg/dL Total Bilirubin 0.8 (0.2-1.0) mg/dL AST 63 H (15-37) IU/L ALT 31 (14-63) IU/L Alkaline Phosphatase 105 (46-116) U/L Troponin I < 0.050 (0.000-0.056) ng/mL B-Natriuretic Peptide 544 H (<100) PG/ML Total Protein 8.0 (6.4-8.2) g/dL Albumin 3.7 (3.4-5.0) g/dL Globulin 4.3 H (2.6-4.0) g/dL Albumin/Globulin Ratio 0.9 (0.9-1.6) Influenza Type A RNA (NEGATIVE) Influenza Type B RNA (NEGATIVE) SARS-CoV-2 RNA (JANICE) (NEGATIVE) 10/20/21 Range/Units 19:59 WBC (4.0-11.0) K/uL RBC (4.30-5.90) M/uL Hgb (12.0-16.0) g/dL Hct (36.0-46.0) % MCV (80.0-98.0) fL MCH (27.0-32.0) pg MCHC (31.0-37.0) g/dL RDW Std Deviation (28.0-62.0) fl RDW Coeff of Sudarshan (11.0-15.0) % Plt Count (150-400) K/uL MPV (7.40-12.00) fL Neut % (Auto) (48.0-80.0) % Lymph % (Auto) (16.0-40.0) % [place] % (Auto) (0.0-15.0) % Eos % (Auto) (0.0-7.0) % Baso % (Auto) (0.0-1.5) % Neut # (Auto) (1.4-5.7) K/uL Lymph # (Auto) (0.6-2.4) K/uL [place] # (Auto) (0.0-0.8) K/uL Eos # (Auto) (0.0-0.7) K/uL Baso # (Auto) (0.0-0.1) K/uL Nucleated RBC % /100WBC Nucleated RBCs # K/uL Sodium (136-145) mmol/L Potassium (3.5-5.1) mmol/L Chloride (98-107) mmol/L Carbon Dioxide (21.0-32.0) mmol/L BUN (7.0-18.0) mg/dL Creatinine (0.6-1.0) mg/dL Est Cr Clr Drug Dosing mL/min Estimated GFR (MDRD) ml/min Glucose (74-106) mg/dL Calcium (8.5-10.1) mg/dL Total Bilirubin (0.2-1.0) mg/dL AST (15-37) IU/L ALT (14-63) IU/L Alkaline Phosphatase (46-116) U/L Troponin I (0.000-0.056) ng/mL B-Natriuretic Peptide (<100) PG/ML Total Protein (6.4-8.2) g/dL Albumin (3.4-5.0) g/dL Globulin (2.6-4.0) g/dL Albumin/Globulin Ratio (0.9-1.6) Influenza Type A RNA NEGATIVE (NEGATIVE) Influenza Type B RNA NEGATIVE (NEGATIVE) SARS-CoV-2 RNA (JANICE) NEGATIVE (NEGATIVE) Meds: Medications Generic Name Dose Route Start Last Admin Trade Name Freq PRN Reason Stop Dose Admin Sodium Chloride 500 mls @ 999 mls/hr 10/20/21 18:15 10/20/21 18:30 Normal Saline IV 999 mls/hr .BOLUS JOHNNY Administration Sodium Chloride 10 ml 10/20/21 18:05 10/20/21 18:28 Sodium Chloride 0.9% 10 Ml Syringe FLUSH 10 ml ASDIRECTED PRN Administration Keep Vein Open Sodium Chloride 2.5 ml 10/20/21 18:05 10/20/21 18:29 Sodium Chloride 0.9% 2.5 Ml Syringe FLUSH 2.5 ml ASDIRECTED PRN Administration Keep Vein Open Discontinued Medications Generic Name Dose Route Start Last Admin Trade Name Freq PRN Reason Stop Dose Admin Albuterol/Ipratropium 3 ml 10/20/21 18:05 10/20/21 18:28 Albuterol/Ipratropium 3.0-0.5 Mg/3 Ml Neb Soln NEB 10/20/21 18:06 3 ml ONETIME ONE Administration Albuterol/Ipratropium 3 ml 10/20/21 19:29 10/20/21 19:59 Albuterol/Ipratropium 3.0-0.5 Mg/3 Ml Neb Soln NEB 10/20/21 19:30 3 ml ONETIME ONE Administration Furosemide 20 mg 10/20/21 20:55 10/20/21 21:06 Furosemide 40 Mg/4 Ml Vial IVPUSH 10/20/21 20:56 20 mg NOW ONE Administration Methylprednisolone Sodium Succinate 125 mg 10/20/21 21:15 Methylprednisolone Sodium Succinate 125 Mg/2 Ml Sdv IVPUSH 10/20/21 21:16 ONETIME ONE - Re-Assessments/Exams Free Text/Narrative Re-Assessment/Exam: 10/20/21 19:17 Patient in minimal respiratory distress. She has scattered wheezes. Patient has slightly prolonged expiratory phase of respiration. She is markedly improved from what was described to me at the end of my partner shift when he signed the patient over to me. Patient has 2 issues 1 is she has accumulated fluid in both lower extremities. She is off furosemide a few days about 3 days since she was discharged in the hospital on furosemide. This fluid accumulation may be just because she needs to have a longer period of diuretic therapy. She has 2 problems including this in the respiratory issue. Respiratory issues likely viral. Tests are pending. Plan to reevaluate and make a disposition after results and response to therapy is more thoroughly evaluated. Free Text/Narrative Re-Assessment/Exam: 10/20/21 21:20 Despite the treatment in the emergency department the patient required oxygen administration and dropped except below 90 when he tried to get ready for discharge. Discussed with Dr. Estrada and admitted to observation status with te lemetry monitoring. Departure - Departure Time of Disposition: 21:20 Condition: Good Sepsis Event Note (ED) - Focused Exam Vital Signs: Vital Signs Temp Pulse Resp BP Pulse Ox 10/20/21 17:36 36.6 C 69 18 134/62 92 L - My Orders Last 24 Hours: My Active Orders 10/20/21 19:29 RT Aerosol Therapy [RC] ASDIRECTED 10/20/21 21:17 Admission Status [Patient Status] [ADT] Stat Cardiac Monitoring [RC] . DIRECTED - Assessment/Plan Last 24 Hours: My Active Orders 10/20/21 19:29 RT Aerosol Therapy [RC] ASDIRECTED 10/20/21 21:17 Admission Status [Patient Status] [ADT] Stat Cardiac Monitoring [RC] . DIRECTED
[2021-10-20] MEDS ORDERED: Sodium Chloride 0.9% 500 ML IV SCH (18:15)
[2021-10-20 19:08] LABS: BLOOD UREA NITROGEN,BUN 17 mg/dL (7.0-18.0); CARBON DIOXIDE,CO2 29.7 mmol/L (21.0-32.0); CHLORIDE,CL 102 mmol/L (98-107); GLUCOSE RANDOM 107 mg/dL (74-106); POTASSIUM,K 4.5 mmol/L (3.5-5.1); SODIUM,NA 142 mmol/L (136-145)
[2021-10-20 20:48] LABS: CORONAVIRUS COVID-19 NAA NEGATIVE (NEGATIVE); INFLUENZA A NAA NEGATIVE (NEGATIVE); INFLUENZA B NAA NEGATIVE (NEGATIVE)
[2021-10-20] MEDS ORDERED: Furosemide 40 MG/4 ML VIAL IVPUSH ONE (20:55)
[2021-10-20] MEDS ORDERED: methylPREDNISolone Sodium Succinate 125 MG/2 ML SDV IVPUSH ONE (21:15)
[2021-10-21] MEDS ORDERED: Amiodarone 200 MG Tab PO SCH (09:00)
[2021-10-21] MEDS ORDERED: Aspirin 81 MG Tab.Chew PO SCH (09:00)
[2021-10-21] MEDS: Ferrous Sulfate 325 MG Tab PO SCH ×2 (09:46→17:29)
[2021-10-21] MEDS ORDERED: Levothyroxine 75 MCG Tab PO SCH (10:00)
[2021-10-21] MEDS ORDERED: Furosemide 20 MG Tab PO SCH (10:00)
[2021-10-21] MEDS ORDERED: Furosemide 40 MG/4 ML VIAL IVPUSH ONE (10:25)
--- NOTE | 2021-10-21 10:32 | PCM.HP.2 ---
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 During her admission for pacmaker she was noted to be fluid overloaded with swelling of her left arm and legs. 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 She has been home for a week since being discharged from rehab. She presents to the ED with complaints of shortness of breath. She also reports swelling of her legs and arm have returned. She was noted to be wheezing on exam on admission. - Related Data Allergies/Adverse Reactions: Allergies Allergy/AdvReac Type Severity Reaction Status Date / Time No Known Allergies Allergy Verified 10/20/21 17:34 Home Medications: Home Meds Levothyroxine 75 mcg PO DAILY 07/14/16 [History] Cholecalciferol (Vitamin D3) [Vitamin D3] 5,000 units PO DAILY 01/12/21 [History] Ferrous Sulfate 325 mg PO BIDMEALS 10/02/21 [History] amLODIPine [Norvasc] 10 mg PO DAILY 10/02/21 [History] Acetaminophen 325 mg PO DAILY 10/20/21 [History] Furosemide [Lasix] 20 mg PO DAILY 10/20/21 [History] Rivaroxaban [Xarelto] 15 mg PO BID 10/20/21 [History] lisinopriL [Lisinopril] 40 mg PO DAILY 10/20/21 [History] Metoprolol Tartrate 75 mg PO BID 10/21/21 [History] atorvaSTATin [Lipitor] 40 mg PO BEDTIME 10/21/21 [History] Past Medical History HEENT History: Reports: None Cardiovascular History: Reports: High Cholesterol, PVD, Other (See Below) Other Cardiovascular History: "white coat syndrome", carotid artery stenosis- stable, asymptomatic, due for repeat Carotid Ultrasound February 2021. Respiratory History: Reports: None Gastrointestinal History: Reports: None Genitourinary History: Reports: Chronic Renal Insuffiency [facility] NURSE History: Reports: Musculoskeletal History: Reports: Osteoporosis, Other (See Below) Neurological History: Reports: TIA Psychiatric History: Reports: Anxiety, Depression, Other (See Below) Endocrine/Metabolic History: Reports: Hypothyroidism, Vitamin D Deficiency Hematologic History: Reports: None Immunologic History: Reports: None Oncologic (Cancer) History: Reports: Lymphoma Dermatologic History: Reports: None - Infectious Disease History Infectious Disease History: Reports: Chicken Pox, Mumps, Other (See Below) - Past Surgical History Head Surgeries/Procedures: Reports: None HEENT Surgical History: Reports: Cataract Surgery, LASIK Cardiovascular Surgical History: Reports: Vascular Surgery, Other (See Below) Other Cardiovascular Surgeries/Procedures: arterial stent placement-left groin, Bipass and pacemaker placed Sep 2021 Respiratory Surgical History: Reports: None GI Surgical History: Reports: Appendectomy, Colonoscopy, EGD, Other (See Below) Other GI Surgeries/Procedures: splenectomy for lymphoma, hx of exploratory laparotomy Female Surgical History: Reports: Section, Hysterectomy, Salpingo- Oophorectomy Endocrine Surgical History: Reports: None Neurological Surgical History: Reports: None Musculoskeletal Surgical History: Reports: None Oncologic Surgical History: Reports: Other (See Below) Other Oncologic Surgeries/Procedures: splenectomy Dermatological Surgical History: Reports: None - History Comment History Comment: etoh "2-3 x a year. Social & Family History - Family History Family Medical History: No Pertinent Family History - Tobacco Use Tobacco Use Status *Q: Never Tobacco User Second Hand Smoke Exposure: No - Caffeine Use Caffeine Use: Reports: Coffee - Recreational Drug Use Recreational Drug Use: No H&P Review of Systems - Review of Systems: Review Of Systems: Comprehensive ROS is negative, except as noted in HPI. Exam - Exam Exam: See Below - Vital Signs Vital Signs: Last Vital Signs Temp 36.8 C 10/21/21 08:00 Pulse 64 10/21/21 08:00 Resp 16 10/21/21 08:00 BP 117/50 L 10/21/21 08:00 Pulse Ox 90 L 10/21/21 04:00 Weight: 50.621 kg - Exam General: Alert, Oriented HEENT: Mucosa Moist & [place] Neck: Supple Lungs: Normal Respiratory Effort, Rhonchi, Wheezing Cardiovascular: Regular Rate, Regular Rhythm GI/Abdominal Exam: Soft, Non-Tender, No Distention Extremities: Non-Tender Skin: Warm, Dry, Intact Neurological: Cranial Nerves Intact. No: Normal Gait - Patient Data Lab Results Last 24 hrs: Laboratory Results - last 24 hr 10/20/21 10/20/21 10/20/21 Range/Units 18:26 18:36 18:36 WBC 9.04 (4.0-11.0) K/uL RBC 3.01 L (4.30-5.90) M/uL Hgb 9.4 L (12.0-16.0) g/dL Hct 30.1 L (36.0-46.0) % MCV 100.0 H (80.0-98.0) fL MCH 31.2 (27.0-32.0) pg MCHC 31.2 (31.0-37.0) g/dL RDW Std Deviation 61.7 (28.0-62.0) fl RDW Coeff of Sudarshan 17 H (11.0-15.0) % Plt Count 233 (150-400) K/uL MPV 12.00 (7.40-12.00) fL Neut % (Auto) 72.2 (48.0-80.0) % Lymph % (Auto) 11.3 L (16.0-40.0) % [place] % (Auto) 13.6 (0.0-15.0) % Eos % (Auto) 2.5 (0.0-7.0) % Baso % (Auto) 0.4 (0.0-1.5) % Neut # (Auto) 6.5 H (1.4-5.7) K/uL Lymph # (Auto) 1.0 (0.6-2.4) K/uL [place] # (Auto) 1.2 H (0.0-0.8) K/uL Eos # (Auto) 0.2 (0.0-0.7) K/uL Baso # (Auto) 0.0 (0.0-0.1) K/uL Nucleated RBC % 0.0 /100WBC Nucleated RBCs # 0 K/uL Sodium 142 (136-145) mmol/L Potassium 4.5 (3.5-5.1) mmol/L Chloride 102 (98-107) mmol/L Carbon Dioxide 29.7 (21.0-32.0) mmol/L BUN 17 (7.0-18.0) mg/dL Creatinine 1.1 H (0.6-1.0) mg/dL Est Cr Clr Drug Dosing 30.76 mL/min Estimated GFR (MDRD) 48.2 ml/min Glucose 107 H (74-106) mg/dL Calcium 9.2 (8.5-10.1) mg/dL Total Bilirubin 0.8 (0.2-1.0) mg/dL AST 63 H (15-37) IU/L ALT 31 (14-63) IU/L Alkaline Phosphatase 105 (46-116) U/L Troponin I < 0.050 (0.000-0.056) ng/mL B-Natriuretic Peptide 544 H (<100) PG/ML Total Protein 8.0 (6.4-8.2) g/dL Albumin 3.7 (3.4-5.0) g/dL Globulin 4.3 H (2.6-4.0) g/dL Albumin/Globulin Ratio 0.9 (0.9-1.6) Influenza Type A RNA (NEGATIVE) Influenza Type B RNA (NEGATIVE) SARS-CoV-2 RNA (JANICE) (NEGATIVE) 10/20/21 Range/Units 19:59 WBC (4.0-11.0) K/uL RBC (4.30-5.90) M/uL Hgb (12.0-16.0) g/dL Hct (36.0-46.0) % MCV (80.0-98.0) fL MCH (27.0-32.0) pg MCHC (31.0-37.0) g/dL RDW Std Deviation (28.0-62.0) fl RDW Coeff of Sudarshan (11.0-15.0) % Plt Count (150-400) K/uL MPV (7.40-12.00) fL Neut % (Auto) (48.0-80.0) % Lymph % (Auto) (16.0-40.0) % [place] % (Auto) (0.0-15.0) % Eos % (Auto) (0.0-7.0) % Baso % (Auto) (0.0-1.5) % Neut # (Auto) (1.4-5.7) K/uL Lymph # (Auto) (0.6-2.4) K/uL [place] # (Auto) (0.0-0.8) K/uL Eos # (Auto) (0.0-0.7) K/uL Baso # (Auto) (0.0-0.1) K/uL Nucleated RBC % /100WBC Nucleated RBCs # K/uL Sodium (136-145) mmol/L Potassium (3.5-5.1) mmol/L Chloride (98-107) mmol/L Carbon Dioxide (21.0-32.0) mmol/L BUN (7.0-18.0) mg/dL Creatinine (0.6-1.0) mg/dL Est Cr Clr Drug Dosing mL/min Estimated GFR (MDRD) ml/min Glucose (74-106) mg/dL Calcium (8.5-10.1) mg/dL Total Bilirubin (0.2-1.0) mg/dL AST (15-37) IU/L ALT (14-63) IU/L Alkaline Phosphatase (46-116) U/L Troponin I (0.000-0.056) ng/mL B-Natriuretic Peptide (<100) PG/ML Total Protein (6.4-8.2) g/dL Albumin (3.4-5.0) g/dL Globulin (2.6-4.0) g/dL Albumin/Globulin Ratio (0.9-1.6) Influenza Type A RNA NEGATIVE (NEGATIVE) Influenza Type B RNA NEGATIVE (NEGATIVE) SARS-CoV-2 RNA (JANICE) NEGATIVE (NEGATIVE) Result Diagrams: 10/20/21 18:36 10/20/21 18:26 Sepsis Event Note - Evaluation Sepsis Screening Result: No Definite Risk - Focused Exam Vital Signs: Vital Signs Temp Pulse Resp BP Pulse Ox 10/21/21 08:00 36.8 C 64 16 117/50 L 10/21/21 04:00 36.6 C 68 18 115/54 L 90 L 10/21/21 00:00 37.2 C 63 16 127/60 91 L Problem List Initiated/Reviewed/Updated: Yes Orders Last 24hrs: Active Orders 24 hr Category Date Time Status Admission Status [Patient Status] [ADT] Stat ADT 10/20/21 21:17 Active Antiembolic Devices [RC] PER UNIT ROUTINE Care 10/21/21 10:27 Ordered Cardiac Monitoring [RC] Q8H Care 10/20/21 21:17 Active Oxygen Therapy [RC] PRN Care 10/21/21 10:26 Ordered RT Aerosol Therapy [RC] ASDIRECTED Care 10/20/21 19:29 Active RT Aerosol Therapy [RC] ASDIRECTED Care 10/21/21 10:21 Ordered Telemetry Monitoring [Cardiac Monitoring] [RC] . Care 10/20/21 21:40 Active DIRECTED Up ad Abby [RC] ASDIRECTED Care 10/21/21 10:25 Ordered VTE/DVT Education [RC] PER UNIT ROUTINE Care 10/21/21 10:26 Ordered Vital Signs [RC] Q4H Care 10/21/21 10:26 Ordered PT Evaluation and Treatment [CONS] Routine Cons 10/21/21 10:25 Ordered Heart Healthy Diet [DIET] Diet 10/21/21 Lunch Active BASIC METABOLIC PANEL,BMP [CHEM] AM Lab 10/22/21 05:11 Ordered BASIC METABOLIC PANEL,BMP [CHEM] AM Lab 10/23/21 05:11 Ordered CBC WITH AUTO DIFF [HEME] AM Lab 10/22/21 05:11 Ordered CBC WITH AUTO DIFF [HEME] AM Lab 10/23/21 05:11 Ordered Albuterol/Ipratropium [DuoNeb 3.0-0.5 MG/3 ML] Med 10/21/21 12:00 Ordered 3 ml NEB Q6HRRT Ferrous Sulfate Med 10/21/21 08:12 Active 325 mg PO BIDMEALS Levothyroxine Med 10/21/21 11:00 Active 75 mcg PO ACBREAKFAST Metoprolol Tartrate [Lopressor] Med 10/21/21 10:00 Active 75 mg PO BID Rivaroxaban [Xarelto] Med 10/21/21 10:00 Active 15 mg PO BID Sodium Chloride 0.9% [Normal Saline] 500 ml Med 10/20/21 18:15 Active IV .BOLUS Sodium Chloride 0.9% [Saline Flush] Med 10/20/21 18:05 Active 10 ml FLUSH ASDIRECTED PRN Sodium Chloride 0.9% [Saline Flush] Med 10/20/21 18:05 Active 2.5 ml FLUSH ASDIRECTED PRN amLODIPine [Norvasc] Med 10/21/21 10:00 Active 10 mg PO DAILY atorvaSTATin [Lipitor] Med 10/21/21 21:00 Active 40 mg PO BEDTIME lisinopriL [Prinivil] Med 10/21/21 10:15 Active 40 mg PO DAILY Saline Lock Insert [OM.PC] Stat Oth 10/20/21 18:05 Ordered Sequential Compression Device [OM.PC] Per Unit Routine Oth 10/21/21 10:26 Ordered Resuscitation Status Routine Resus Stat 10/21/21 10:25 Ordered Medication Orders Albuterol/Ipratropium (Albuterol/Ipratropium 3.0-0.5 Mg/3 Ml Neb Soln) 3 ml NEB Q6HRRT [facility] Amlodipine Besylate (Amlodipine 5 Mg Tab) 10 mg PO DAILY [facility] Atorvastatin Calcium (Atorvastatin 40 Mg Tab) 40 mg PO BEDTIME [facility] Ferrous Sulfate (Ferrous Sulfate 325 Mg Tab) 325 mg PO BIDMEALS [facility] Last Admin: 10/21/21 09:46 Dose: 325 mg Documented by: SHADI Sodium Chloride (Normal Saline) 500 mls @ 999 mls/hr IV .BOLUS [facility] Last Admin: 10/20/21 18:30 Dose: 999 mls/hr Documented by: LAURITA Levothyroxine Sodium (Levothyroxine 75 Mcg Tab) 75 mcg PO ACBREAKFAST [facility] Lisinopril (Lisinopril 10 Mg Tab) 40 mg PO DAILY [facility] Metoprolol Tartrate (Metoprolol Tartrate 50 Mg Tab) 75 mg PO BID [facility] Rivaroxaban (Rivaroxaban 15 Mg Tab) 15 mg PO BID [facility] Sodium Chloride (Sodium Chloride 0.9% 10 Ml Syringe) 10 ml FLUSH ASDIRECTED PRN PRN Reason: Keep Vein Open Last Admin: 10/20/21 18:28 Dose: 10 ml Documented by: LAURITA Sodium Chloride (Sodium Chloride 0.9% 2.5 Ml Syringe) 2.5 ml FLUSH ASDIRECTED PRN PRN Reason: Keep Vein Open Last Admin: 10/20/21 18:29 Dose: 2.5 ml Documented by: LAURITA Assessment/Plan Comment:: 75 yo female admitted with hypoxia, likley due to reactive airway disease and CHF. Patient has received solumedrol, We will continue to give duonebs and diuresis with lasix.
[2021-10-21] MEDS: amLODIPine 5 MG Tab PO SCH (10:39)
[2021-10-21] MEDS: Rivaroxaban 15 MG Tab PO SCH ×2 (10:40→20:56)
[2021-10-21] MEDS: Metoprolol Tartrate 50 MG Tab PO SCH ×2 (10:40→20:56)
[2021-10-21] MEDS: Lisinopril 10 MG Tab PO SCH (10:41)
[2021-10-21] MEDS: Levothyroxine 75 MCG Tab PO SCH (11:46)
[2021-10-21] MEDS: Albuterol/Ipratropium 3.0-0.5 MG/3 ML Neb Soln NEB SCH ×3 (12:05→23:07)
[2021-10-21] MEDS: atorvaSTATin 40 MG Tab PO SCH (20:56)
[2021-10-21] MEDS ORDERED: diphenhydrAMINE 25 MG Cap PO PRN (22:29)
[2021-10-22] MEDS: Albuterol/Ipratropium 3.0-0.5 MG/3 ML Neb Soln NEB SCH ×3 (06:05→17:04)
[2021-10-22 07:01] LABS: CARBON DIOXIDE,CO2 26.7 mmol/L (21.0-32.0); POTASSIUM,K 3.2 mmol/L (3.5-5.1)
[2021-10-22] MEDS ORDERED: Levothyroxine 50 MCG Tab PO SCH (07:30)
[2021-10-22] MEDS ORDERED: Potassium Chloride Riders 40 MEQ in Premix Bag 1 BAG IV ONE (07:56)
[2021-10-22] MEDS ORDERED: Potassium Chloride 20 MEQ Tab.ER PO ONE (07:56)
--- NOTE | 2021-10-22 08:00 | PCM.PN ---
- General Info Date of Service: 10/22/21 Admission Dx/Problem (Free Text): Admission Diagnosis/Problem Admission Diagnosis/Problem Hypoxia Subjective Update: 75-year-old female with history of DVT on A/C, recent CABG done last month and pacemaker placed this month for bradycardia was admitted for CHF and reactive airway. Patient received duo nebs and Lasix diuresis. Patient has significant wheezing this morning and increased oxygen demands overnight. She is now on 2 L nasal cannula. White count is elevated this morning, she denies cough, dysuria or headaches. - Review of Systems General: Denies: Fever, Chills HEENT: Denies: Headaches Pulmonary: Reports: Shortness of Breath Cardiovascular: Denies: Chest Pain, Palpitations Gastrointestinal: Denies: Abdominal Pain, Diarrhea, Nausea, Vomiting Musculoskeletal: Denies: Neck Pain, Leg Pain Neurological: Denies: Confusion, Dizziness, Numbness, Paresthesia - Patient Data Vitals - Most Recent: Last Vital Signs Temp 97.2 F 10/22/21 07:33 Pulse 63 10/22/21 07:33 Resp 20 10/22/21 07:33 BP 116/56 L 10/22/21 07:33 Pulse Ox 95 10/22/21 07:33 Weight - Most Recent: 111 lb 9.6 oz I&O - Last 24 Hours: Intake & Output 10/21/21 10/22/21 10/22/21 22:59 06:59 14:59 Intake Total 480 750 Output Total 600 500 Balance -120 250 Lab Results Last 24 Hours: Laboratory Results - last 24 hr 10/22/21 10/22/21 Range/Units 06:31 06:31 WBC 18.03 H (4.0-11.0) K/uL RBC 2.95 L (4.30-5.90) M/uL Hgb 9.1 L (12.0-16.0) g/dL Hct 28.8 L (36.0-46.0) % MCV 97.6 (80.0-98.0) fL MCH 30.8 (27.0-32.0) pg MCHC 31.6 (31.0-37.0) g/dL RDW Std Deviation 60.0 (28.0-62.0) fl RDW Coeff of Sudarshan 17 H (11.0-15.0) % Plt Count 202 (150-400) K/uL MPV 12.50 H (7.40-12.00) fL Neut % (Auto) 85.9 H (48.0-80.0) % Lymph % (Auto) 5.6 L (16.0-40.0) % [place] % (Auto) 8.4 (0.0-15.0) % Eos % (Auto) 0.0 (0.0-7.0) % Baso % (Auto) 0.1 (0.0-1.5) % Neut # (Auto) 15.5 H (1.4-5.7) K/uL Lymph # (Auto) 1.0 (0.6-2.4) K/uL [place] # (Auto) 1.5 H (0.0-0.8) K/uL Eos # (Auto) 0.0 (0.0-0.7) K/uL Baso # (Auto) 0.0 (0.0-0.1) K/uL Nucleated RBC % 0.4 /100WBC Nucleated RBCs # 0 K/uL Sodium 141 (136-145) mmol/L Potassium 3.2 L (3.5-5.1) mmol/L Chloride 102 (98-107) mmol/L Carbon Dioxide 26.7 (21.0-32.0) mmol/L BUN 31 H (7.0-18.0) mg/dL Creatinine 1.7 H (0.6-1.0) mg/dL Est Cr Clr Drug Dosing 19.91 mL/min Estimated GFR (MDRD) 29.1 ml/min Glucose 129 H (74-106) mg/dL Calcium 8.3 L (8.5-10.1) mg/dL Med Orders - Current: Current Medications Albuterol/Ipratropium (Albuterol/Ipratropium 3.0-0.5 Mg/3 Ml Neb Soln) 3 ml NEB Q6HRRT [facility] Last Admin: 10/22/21 06:05 Dose: 3 ml Documented by: Amlodipine Besylate (Amlodipine 5 Mg Tab) 10 mg PO DAILY [facility] [place] Last Admin: 10/21/21 10:39 Dose: 10 mg Documented by: Atorvastatin Calcium (Atorvastatin 40 Mg Tab) 40 mg PO BEDTIME [facility] [place] Last Admin: 10/21/21 20:56 Dose: 40 mg Documented by: Diphenhydramine HCl (Diphenhydramine 25 Mg Cap) 25 mg PO BEDTIME PRN PRN Reason: Sleep Last Admin: 10/21/21 23:07 Dose: 25 mg Documented by: Ferrous Sulfate (Ferrous Sulfate 325 Mg Tab) 325 mg PO BIDMEALS [facility] [place] Last Admin: 10/21/21 17:29 Dose: 325 mg Documented by: Sodium Chloride (Normal Saline) 500 mls @ 999 mls/hr IV .BOLUS [facility] [place] Last Admin: 10/20/21 18:30 Dose: 999 mls/hr Documented by: Levothyroxine Sodium (Levothyroxine 75 Mcg Tab) 75 mcg PO ACBREAKFAST [facility] [place] Last Admin: 10/21/21 11:46 Dose: 75 mcg Documented by: Lisinopril (Lisinopril 10 Mg Tab) 40 mg PO DAILY [facility] [place] Last Admin: 10/21/21 10:41 Dose: 40 mg Documented by: Metoprolol Tartrate (Metoprolol Tartrate 50 Mg Tab) 75 mg PO BID [facility] [place] Last Admin: 10/21/21 20:56 Dose: 75 mg Documented by: Rivaroxaban (Rivaroxaban 15 Mg Tab) 15 mg PO BID [facility] [place] Last Admin: 10/21/21 20:56 Dose: 15 mg Documented by: Sodium Chloride (Sodium Chloride 0.9% 10 Ml Syringe) 10 ml FLUSH ASDIRECTED PRN PRN Reason: Keep Vein Open Last Admin: 10/20/21 18:28 Dose: 10 ml Documented by: Sodium Chloride (Sodium Chloride 0.9% 2.5 Ml Syringe) 2.5 ml FLUSH ASDIRECTED PRN PRN Reason: Keep Vein Open Last Admin: 10/20/21 18:29 Dose: 2.5 ml Documented by: Discontinued Medications Albuterol/Ipratropium (Albuterol/Ipratropium 3.0-0.5 Mg/3 Ml Neb Soln) 3 ml NEB ONETIME ONE Stop: 10/20/21 18:06 Last Admin: 10/20/21 18:28 Dose: 3 ml Documented by: Albuterol/Ipratropium (Albuterol/Ipratropium 3.0-0.5 Mg/3 Ml Neb Soln) 3 ml NEB ONETIME ONE Stop: 10/20/21 19:30 Last Admin: 10/20/21 19:59 Dose: 3 ml Documented by: Amiodarone HCl (Amiodarone 200 Mg Tab) 200 mg PO DAILY [facility] [place] Aspirin (Aspirin 81 Mg Tab.Chew) 81 mg PO DAILY [facility] [place] Furosemide (Furosemide 40 Mg/4 Ml Vial) 20 mg IVPUSH NOW ONE Stop: 10/20/21 20:56 Last Admin: 10/20/21 21:06 Dose: 20 mg Documented by: Furosemide (Furosemide 20 Mg Tab) 20 mg PO DAILY [facility] Last Admin: 10/21/21 11:13 Dose: Not Given Documented by: Furosemide (Furosemide 40 Mg/4 Ml Vial) 40 mg IVPUSH NOW ONE Stop: 10/21/21 10:26 Last Admin: 10/21/21 10:38 Dose: 40 mg Documented by: Methylprednisolone Sodium Succinate (Methylprednisolone Sodium Succinate 125 Mg/2 Ml Sdv) 125 mg IVPUSH ONETIME ONE Stop: 10/20/21 21:16 Last Admin: 10/20/21 21:23 Dose: 125 mg Documented by: - Exam Quality Assessment: Supplemental Oxygen General: Alert, Oriented, Cooperative HEENT: Pupils Equal, Pupils Reactive Neck: Supple, Trachea Midline Lungs: Wheezing Cardiovascular: Regular Rate GI/Abdominal Exam: Normal Bowel Sounds, Soft, Non-Tender Back Exam: Normal Inspection Extremities: Normal Inspection, Normal Range of Motion, Pedal Edema, Other (Left upper extremity swelling.) Peripheral Pulses: 2+: Dorsalis Pedis (L), Dorsalis Pedis (R) Wound/Incisions: Dressing Dry and Intact, No Drainage, Erythema Improving Neurological: No New Focal Deficit - Patient Data Lab Results Last 24 hrs: Laboratory Results - last 24 hr 10/22/21 10/22/21 Range/Units 06:31 06:31 WBC 18.03 H (4.0-11.0) K/uL RBC 2.95 L (4.30-5.90) M/uL Hgb 9.1 L (12.0-16.0) g/dL Hct 28.8 L (36.0-46.0) % MCV 97.6 (80.0-98.0) fL MCH 30.8 (27.0-32.0) pg MCHC 31.6 (31.0-37.0) g/dL RDW Std Deviation 60.0 (28.0-62.0) fl RDW Coeff of Sudarshan 17 H (11.0-15.0) % Plt Count 202 (150-400) K/uL MPV 12.50 H (7.40-12.00) fL Neut % (Auto) 85.9 H (48.0-80.0) % Lymph % (Auto) 5.6 L (16.0-40.0) % [place] % (Auto) 8.4 (0.0-15.0) % Eos % (Auto) 0.0 (0.0-7.0) % Baso % (Auto) 0.1 (0.0-1.5) % Neut # (Auto) 15.5 H (1.4-5.7) K/uL Lymph # (Auto) 1.0 (0.6-2.4) K/uL [place] # (Auto) 1.5 H (0.0-0.8) K/uL Eos # (Auto) 0.0 (0.0-0.7) K/uL Baso # (Auto) 0.0 (0.0-0.1) K/uL Nucleated RBC % 0.4 /100WBC Nucleated RBCs # 0 K/uL Sodium 141 (136-145) mmol/L Potassium 3.2 L (3.5-5.1) mmol/L Chloride 102 (98-107) mmol/L Carbon Dioxide 26.7 (21.0-32.0) mmol/L BUN 31 H (7.0-18.0) mg/dL Creatinine 1.7 H (0.6-1.0) mg/dL Est Cr Clr Drug Dosing 19.91 mL/min Estimated GFR (MDRD) 29.1 ml/min Glucose 129 H (74-106) mg/dL Calcium 8.3 L (8.5-10.1) mg/dL Result Diagrams: 10/22/21 06:31 10/22/21 06:31 Sepsis Event Note - Evaluation Sepsis Screening Result: No Definite Risk - Focused Exam Vital Signs: Vital Signs Temp Pulse Pulse Resp BP BP Pulse Ox 10/22/21 07:33 97.2 F 63 20 116/56 L 95 10/22/21 04:00 96.9 F 66 20 117/63 92 L 10/22/21 00:00 98.3 F 71 16 116/44 L 93 L 10/21/21 20:56 66 107/61 10/21/21 20:00 98.3 F 66 18 107/61 90 L - Problem List Review Problem List Initiated/Reviewed/Updated: Yes - Plan Plan:: CHF and Reactive Airway Disease: We will initiate azithromycin and Solu-Medrol. Acapella respiratory therapy. DuoNebs. Lasix 40 mg daily. Metoprolol 75 mg twice daily. Xarelto 15 mg twice daily. Lisinopril 40 mg daily. Amlodipine 10 mg daily. Potassium repleted. Continue home medications: Ferrous sulfate, levothyroxine, and atorvastatin.
[2021-10-22] MEDS: Metoprolol Tartrate 50 MG Tab PO SCH ×2 (08:24→20:54)
[2021-10-22] MEDS: amLODIPine 5 MG Tab PO SCH (08:24)
[2021-10-22] MEDS: Ferrous Sulfate 325 MG Tab PO SCH ×2 (08:25→17:34)
[2021-10-22] MEDS: Levothyroxine 75 MCG Tab PO SCH (08:25)
[2021-10-22] MEDS: Lisinopril 10 MG Tab PO SCH (08:25)
[2021-10-22] MEDS: Rivaroxaban 15 MG Tab PO SCH ×2 (08:25→20:54)
[2021-10-22] MEDS ORDERED: Sodium Chloride 0.9% 250 ML IV SCH (09:00)
--- NOTE | 2021-10-22 09:02 | CR ---
Indication: Possible pneumonia Technique: Portable chest Comparison: Chest x-ray 10/02/2021 Findings: Stable cardiac mediastinal silhouette. Right cardiac pacer median sternotomy. Low lung volumes. Minimal basilar atelectasis. Left subclavian Port-A-Cath unchanged in position. Dictated by Juju Mills MD @ 10/22/2021 9:00:19 AM (Electronically Signed)
[2021-10-22] MEDS: Azithromycin 500 MG in Sodium Chloride 0.9% 250 ML IV SCH (12:29)
[2021-10-22] MEDS ORDERED: methylPREDNISolone Sodium Succinate 125 MG/2 ML SDV IVPUSH SCH (13:00)
[2021-10-22] MEDS ORDERED: Melatonin 3 MG Tab PO PRN (17:54)
[2021-10-22] MEDS: atorvaSTATin 40 MG Tab PO SCH (20:54)
[2021-10-22] MEDS: diphenhydrAMINE 50 MG Cap PO PRN (20:54)
[2021-10-23] MEDS: Albuterol/Ipratropium 3.0-0.5 MG/3 ML Neb Soln NEB SCH ×6 (00:17→22:23)
[2021-10-23] MEDS: Levothyroxine 75 MCG Tab PO SCH (06:56)
[2021-10-23 07:13] LABS: CARBON DIOXIDE,CO2 27.5 mmol/L (21.0-32.0); POTASSIUM,K 4.6 mmol/L (3.5-5.1)
[2021-10-23] MEDS: amLODIPine 5 MG Tab PO SCH (08:26)
[2021-10-23] MEDS: Rivaroxaban 15 MG Tab PO SCH ×2 (08:26→20:48)
[2021-10-23] MEDS: Ferrous Sulfate 325 MG Tab PO SCH ×2 (08:26→17:17)
[2021-10-23] MEDS: Metoprolol Tartrate 50 MG Tab PO SCH ×2 (08:27→20:48)
[2021-10-23] MEDS ORDERED: Albuterol/Ipratropium 3.0-0.5 MG/3 ML Neb Soln NEB PRN (12:01)
--- NOTE | 2021-10-23 12:07 | PCM.PN ---
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 Patient received duo nebs and Lasix diuresis. Patient's lungs are clear but develops wheezing after she works with physical therapy. Spoke with cardiology in [place] who stated patient can follow-up with cardiology in [place] at her follow-up regarding her concerns.. Patient continues on 2 L nasal cannula. - Review of Systems General: Denies: Fever HEENT: Denies: Headaches Pulmonary: Reports: Shortness of Breath, Cough, Sputum Cardiovascular: Denies: Chest Pain, Palpitations Gastrointestinal: Denies: Abdominal Pain, Constipation, Nausea, Vomiting Genitourinary: Denies: Dysuria Musculoskeletal: Denies: Leg Pain Skin: Denies: Rash Neurological: Denies: Confusion - Patient Data Vitals - Most Recent: Last Vital Signs Temp 98.3 F 10/23/21 09:00 Pulse 64 10/23/21 09:00 Resp 16 10/23/21 09:00 BP 132/67 10/23/21 09:00 Pulse Ox 96 10/23/21 09:37 Weight - Most Recent: 111 lb 9.6 oz I&O - Last 24 Hours: Intake & Output 10/22/21 10/23/21 10/23/21 22:59 06:59 14:59 Intake Total 400 Output Total 300 Balance 100 Lab Results Last 24 Hours: Laboratory Results - last 24 hr 10/23/21 10/23/21 Range/Units 06:38 06:38 WBC 13.64 H (4.0-11.0) K/uL RBC 2.82 L (4.30-5.90) M/uL Hgb 8.7 L (12.0-16.0) g/dL Hct 28.1 L (36.0-46.0) % MCV 99.6 H (80.0-98.0) fL MCH 30.9 (27.0-32.0) pg MCHC 31.0 (31.0-37.0) g/dL RDW Std Deviation 62.0 (28.0-62.0) fl RDW Coeff of Sudarshan 17 H (11.0-15.0) % Plt Count 251 (150-400) K/uL MPV 12.10 H (7.40-12.00) fL Neut % (Auto) 91.7 H (48.0-80.0) % Lymph % (Auto) 5.9 L (16.0-40.0) % Mercer % (Auto) 2.3 (0.0-15.0) % Eos % (Auto) 0.0 (0.0-7.0) % Baso % (Auto) 0.1 (0.0-1.5) % Neut # (Auto) 12.5 H (1.4-5.7) K/uL Lymph # (Auto) 0.8 (0.6-2.4) K/uL Mercer # (Auto) 0.3 (0.0-0.8) K/uL Eos # (Auto) 0.0 (0.0-0.7) K/uL Baso # (Auto) 0.0 (0.0-0.1) K/uL Nucleated RBC % 0.0 /100WBC Nucleated RBCs # 0 K/uL Sodium 142 (136-145) mmol/L Potassium 4.6 (3.5-5.1) mmol/L Chloride 106 (98-107) mmol/L Carbon Dioxide 27.5 (21.0-32.0) mmol/L BUN 37 H (7.0-18.0) mg/dL Creatinine 1.7 H (0.6-1.0) mg/dL Est Cr Clr Drug Dosing 19.91 mL/min Estimated GFR (MDRD) 29.1 ml/min Glucose 141 H (74-106) mg/dL Calcium 7.6 L (8.5-10.1) mg/dL Med Orders - Current: Current Medications Albuterol/Ipratropium (Albuterol/Ipratropium 3.0-0.5 Mg/3 Ml Neb Soln) 3 ml NEB Q6HRRT [facility] Last Admin: 10/23/21 05:51 Dose: Not Given Documented by: Amlodipine Besylate (Amlodipine 5 Mg Tab) 10 mg PO DAILY [facility] Last Admin: 10/23/21 08:26 Dose: 10 mg Documented by: Atorvastatin Calcium (Atorvastatin 40 Mg Tab) 40 mg PO BEDTIME [facility] Last Admin: 10/22/21 20:54 Dose: 40 mg Documented by: Diphenhydramine HCl (Diphenhydramine 50 Mg Cap) 50 mg PO BEDTIME PRN PRN Reason: Insomnia Last Admin: 10/22/21 20:54 Dose: 50 mg Documented by: Ferrous Sulfate (Ferrous Sulfate 325 Mg Tab) 325 mg PO BIDMEALS [facility] Last Admin: 10/23/21 08:26 Dose: 325 mg Documented by: Sodium Chloride (Normal Saline) 500 mls @ 999 mls/hr IV .BOLUS [facility] Last Admin: 10/20/21 18:30 Dose: 999 mls/hr Documented by: Azithromycin 500 mg/ Sodium (Chloride) 250 mls @ 250 mls/hr IV Q24H [facility] Last Admin: 10/22/21 12:29 Dose: 250 mls/hr Documented by: Levothyroxine Sodium (Levothyroxine 75 Mcg Tab) 75 mcg PO ACBREAKFAST [facility] Last Admin: 10/23/21 06:56 Dose: 75 mcg Documented by: Melatonin (Melatonin 3 Mg Tab) 6 mg PO BEDTIME PRN PRN Reason: Insomnia Methylprednisolone Sodium Succinate (Methylprednisolone Sodium Succinate 125 Mg/2 Ml Sdv) 125 mg IVPUSH Q24H [facility] Last Admin: 10/22/21 12:28 Dose: 125 mg Documented by: Metoprolol Tartrate (Metoprolol Tartrate 50 Mg Tab) 75 mg PO BID [facility] Last Admin: 10/23/21 08:27 Dose: 75 mg Documented by: Rivaroxaban (Rivaroxaban 15 Mg Tab) 15 mg PO BID [facility] Last Admin: 10/23/21 08:26 Dose: 15 mg Documented by: Sodium Chloride (Sodium Chloride 0.9% 10 Ml Syringe) 10 ml FLUSH ASDIRECTED PRN PRN Reason: Keep Vein Open Last Admin: 10/20/21 18:28 Dose: 10 ml Documented by: Sodium Chloride (Sodium Chloride 0.9% 2.5 Ml Syringe) 2.5 ml FLUSH ASDIRECTED PRN PRN Reason: Keep Vein Open Last Admin: 10/20/21 18:29 Dose: 2.5 ml Documented by: Discontinued Medications Albuterol/Ipratropium (Albuterol/Ipratropium 3.0-0.5 Mg/3 Ml Neb Soln) 3 ml NEB ONETIME ONE Stop: 10/20/21 18:06 Last Admin: 10/20/21 18:28 Dose: 3 ml Documented by: Albuterol/Ipratropium (Albuterol/Ipratropium 3.0-0.5 Mg/3 Ml Neb Soln) 3 ml NEB ONETIME ONE Stop: 10/20/21 19:30 Last Admin: 10/20/21 19:59 Dose: 3 ml Documented by: Amiodarone HCl (Amiodarone 200 Mg Tab) 200 mg PO DAILY [facility] Aspirin (Aspirin 81 Mg Tab.Chew) 81 mg PO DAILY [facility] Diphenhydramine HCl (Diphenhydramine 25 Mg Cap) 25 mg PO BEDTIME PRN PRN Reason: Sleep Last Admin: 10/21/21 23:07 Dose: 25 mg Documented by: Furosemide (Furosemide 40 Mg/4 Ml Vial) 20 mg IVPUSH NOW ONE Stop: 10/20/21 20:56 Last Admin: 10/20/21 21:06 Dose: 20 mg Documented by: Furosemide (Furosemide 20 Mg Tab) 20 mg PO DAILY [facility] Last Admin: 10/21/21 11:13 Dose: Not Given Documented by: Furosemide (Furosemide 40 Mg/4 Ml Vial) 40 mg IVPUSH NOW ONE Stop: 10/21/21 10:26 Last Admin: 10/21/21 10:38 Dose: 40 mg Documented by: Potassium Chloride 40 meq/ (Premix) 100 mls @ 25 mls/hr IV ONETIME ONE Stop: 10/22/21 11:55 Last Admin: 10/22/21 08:26 Dose: 25 mls/hr Documented by: Sodium Chloride (Normal Saline) 250 mls @ 62.5 mls/hr IV 10/22/21@0900 [facility] Stop: 10/22/21 12:59 Last Admin: 10/22/21 08:26 Dose: 62.5 mls/hr Documented by: Lisinopril (Lisinopril 10 Mg Tab) 40 mg PO DAILY [facility] Last Admin: 10/22/21 08:25 Dose: 40 mg Documented by: Methylprednisolone Sodium Succinate (Methylprednisolone Sodium Succinate 125 Mg/2 Ml Sdv) 125 mg IVPUSH ONETIME ONE Stop: 10/20/21 21:16 Last Admin: 10/20/21 21:23 Dose: 125 mg Documented by: Potassium Chloride (Potassium Chloride 20 Meq Tab.Er) 40 meq PO ONETIME ONE Stop: 10/22/21 07:57 Last Admin: 10/22/21 08:39 Dose: 40 meq Documented by: - Exam Quality Assessment: Supplemental Oxygen General: Alert, Oriented, No Acute Distress HEENT: Pupils Equal, Pupils Reactive Neck: Supple Lungs: Wheezing Cardiovascular: Regular Rate, No Murmurs GI/Abdominal Exam: Normal Bowel Sounds, Soft, Non-Tender Back Exam: Normal Inspection Extremities: Normal Inspection, No Pedal Edema, Other (Left upper extremity and left lower extremity swelling.) Peripheral Pulses: 2+: Dorsalis Pedis (L), Dorsalis Pedis (R) Skin: No: Rash Neurological: No New Focal Deficit - Patient Data Lab Results Last 24 hrs: Laboratory Results - last 24 hr 10/23/21 10/23/21 Range/Units 06:38 06:38 WBC 13.64 H (4.0-11.0) K/uL RBC 2.82 L (4.30-5.90) M/uL Hgb 8.7 L (12.0-16.0) g/dL Hct 28.1 L (36.0-46.0) % MCV 99.6 H (80.0-98.0) fL MCH 30.9 (27.0-32.0) pg MCHC 31.0 (31.0-37.0) g/dL RDW Std Deviation 62.0 (28.0-62.0) fl RDW Coeff of Sudarshan 17 H (11.0-15.0) % Plt Count 251 (150-400) K/uL MPV 12.10 H (7.40-12.00) fL Neut % (Auto) 91.7 H (48.0-80.0) % Lymph % (Auto) 5.9 L (16.0-40.0) % Mercer % (Auto) 2.3 (0.0-15.0) % Eos % (Auto) 0.0 (0.0-7.0) % Baso % (Auto) 0.1 (0.0-1.5) % Neut # (Auto) 12.5 H (1.4-5.7) K/uL Lymph # (Auto) 0.8 (0.6-2.4) K/uL Mercer # (Auto) 0.3 (0.0-0.8) K/uL Eos # (Auto) 0.0 (0.0-0.7) K/uL Baso # (Auto) 0.0 (0.0-0.1) K/uL Nucleated RBC % 0.0 /100WBC Nucleated RBCs # 0 K/uL Sodium 142 (136-145) mmol/L Potassium 4.6 (3.5-5.1) mmol/L Chloride 106 (98-107) mmol/L Carbon Dioxide 27.5 (21.0-32.0) mmol/L BUN 37 H (7.0-18.0) mg/dL Creatinine 1.7 H (0.6-1.0) mg/dL Est Cr Clr Drug Dosing 19.91 mL/min Estimated GFR (MDRD) 29.1 ml/min Glucose 141 H (74-106) mg/dL Calcium 7.6 L (8.5-10.1) mg/dL Result Diagrams: 10/23/21 06:38 10/23/21 06:38 Sepsis Event Note - Evaluation Sepsis Screening Result: No Definite Risk - Focused Exam Vital Signs: Vital Signs Temp Pulse Pulse Resp BP BP Pulse Ox 10/23/21 09:37 10/23/21 09:00 98.3 F 64 16 132/67 98 10/23/21 08:27 75 132/67 10/23/21 08:26 132/67 10/23/21 05:00 97.7 F 75 20 128/58 L 91 L Pulse Ox 10/23/21 09:37 96 10/23/21 09:00 10/23/21 08:27 10/23/21 08:26 10/23/21 05:00 - Problem List Review Problem List Initiated/Reviewed/Updated: Yes - My Orders Last 24 Hours: My Active Orders 10/22/21 12:00 Acapella [RT Chest Physiotherapy] [RC] ASDIRECTED 10/22/21 13:00 Azithromycin [Zithromax] 500 mg Sodium Chloride 0.9% [Normal Saline AdvBag] 250 ml IV Q24H methylPREDNISolone Sod Succ [Solu-MEDROL] 125 mg IVPUSH Q24H 10/22/21 17:53 diphenhydrAMINE [Benadryl] 50 mg PO BEDTIME PRN 10/22/21 17:54 Melatonin 6 mg PO BEDTIME PRN 10/23/21 12:01 Patient Status [ADT] Routine - Plan Plan:: CHF and Reactive Airway Disease: Continue azithromycin and Solu-Medrol. Acapella respiratory therapy. DuoNebs every 4 hours. Metoprolol 75 mg twice daily. Xarelto 15 mg twice daily. Lisinopril 40 mg daily. Amlodipine 10 mg daily. Consulted physical therapy regarding compression dressings for lymphedema. Continue home medications: Ferrous sulfate, levothyroxine, and atorvastatin. <Keo Castañeda - Last Filed: 10/24/21 10:26> - Patient Data Vitals - Most Recent: Last Vital Signs Temp 97.3 F 10/24/21 04:00 Pulse 64 10/24/21 08:31 Resp 22 H 10/24/21 04:00 BP 124/62 10/24/21 08:31 Pulse Ox 95 10/24/21 04:00 I&O - Last 24 Hours: Intake & Output 10/23/21 10/24/21 10/24/21 22:59 06:59 14:59 Intake Total 740 450 Output Total 700 550 Balance 40 -100 Lab Results Last 24 Hours: Laboratory Results - last 24 hr 10/24/21 Range/Units 09:03 Sodium 141 (136-145) mmol/L Potassium 3.9 (3.5-5.1) mmol/L Chloride 105 (98-107) mmol/L Carbon Dioxide 23.9 (21.0-32.0) mmol/L BUN 52 H (7.0-18.0) mg/dL Creatinine 2.0 H (0.6-1.0) mg/dL Est Cr Clr Drug Dosing 16.92 mL/min Estimated GFR (MDRD) 24.2 ml/min Glucose 248 H (74-106) mg/dL Calcium 7.9 L (8.5-10.1) mg/dL Med Orders - Current: Current Medications Albuterol/Ipratropium (Albuterol/Ipratropium 3.0-0.5 Mg/3 Ml Neb Soln) 3 ml NEB Q2H PRN PRN Reason: Dyspnea Albuterol/Ipratropium (Albuterol/Ipratropium 3.0-0.5 Mg/3 Ml Neb Soln) 3 ml NEB Q4HRRT [facility] Last Admin: 10/24/21 09:34 Dose: 3 ml Documented by: Amlodipine Besylate (Amlodipine 5 Mg Tab) 10 mg PO DAILY [facility] Last Admin: 10/24/21 08:30 Dose: 10 mg Documented by: Atorvastatin Calcium (Atorvastatin 40 Mg Tab) 40 mg PO BEDTIME [facility] Last Admin: 10/23/21 20:48 Dose: 40 mg Documented by: Diphenhydramine HCl (Diphenhydramine 50 Mg Cap) 50 mg PO BEDTIME PRN PRN Reason: Insomnia Last Admin: 10/23/21 20:48 Dose: 50 mg Documented by: Ferrous Sulfate (Ferrous Sulfate 325 Mg Tab) 325 mg PO BIDMEALS [facility] Last Admin: 10/24/21 08:32 Dose: 325 mg Documented by: Sodium Chloride (Normal Saline) 500 mls @ 999 mls/hr IV .BOLUS [facility] Last Admin: 10/20/21 18:30 Dose: 999 mls/hr Documented by: Azithromycin 500 mg/ Sodium (Chloride) 250 mls @ 250 mls/hr IV Q24H [facility] Last Admin: 10/23/21 12:53 Dose: 250 mls/hr Documented by: Levothyroxine Sodium (Levothyroxine 75 Mcg Tab) 75 mcg PO ACBREAKFAST [facility] Last Admin: 10/24/21 06:36 Dose: 75 mcg Documented by: Melatonin (Melatonin 3 Mg Tab) 6 mg PO BEDTIME PRN PRN Reason: Insomnia Methylprednisolone Sodium Succinate (Methylprednisolone Sodium Succinate 40 Mg/1 Ml Sdv) 80 mg IVPUSH Q8H [facility] Last Admin: 10/24/21 04:15 Dose: 80 mg Documented by: Metoprolol Tartrate (Metoprolol Tartrate 50 Mg Tab) 75 mg PO BID [facility] Last Admin: 10/24/21 08:31 Dose: 75 mg Documented by: Rivaroxaban (Rivaroxaban 15 Mg Tab) 15 mg PO BID [facility] Last Admin: 10/24/21 08:31 Dose: 15 mg Documented by: Sodium Chloride (Sodium Chloride 0.9% 10 Ml Syringe) 10 ml FLUSH ASDIRECTED PRN PRN Reason: Keep Vein Open Last Admin: 10/20/21 18:28 Dose: 10 ml Documented by: Sodium Chloride (Sodium Chloride 0.9% 2.5 Ml Syringe) 2.5 ml FLUSH ASDIRECTED PRN PRN Reason: Keep Vein Open Last Admin: 10/20/21 18:29 Dose: 2.5 ml Documented by: Discontinued Medications Albuterol/Ipratropium (Albuterol/Ipratropium 3.0-0.5 Mg/3 Ml Neb Soln) 3 ml NEB ONETIME ONE Stop: 10/20/21 18:06 Last Admin: 10/20/21 18:28 Dose: 3 ml Documented by: Albuterol/Ipratropium (Albuterol/Ipratropium 3.0-0.5 Mg/3 Ml Neb Soln) 3 ml NEB ONETIME ONE Stop: 10/20/21 19:30 Last Admin: 10/20/21 19:59 Dose: 3 ml Documented by: Albuterol/Ipratropium (Albuterol/Ipratropium 3.0-0.5 Mg/3 Ml Neb Soln) 3 ml NEB Q6HRRT [facility] Last Admin: 10/23/21 22:23 Dose: Not Given Documented by: Amiodarone HCl (Amiodarone 200 Mg Tab) 200 mg PO DAILY [facility] Aspirin (Aspirin 81 Mg Tab.Chew) 81 mg PO DAILY [facility] Diphenhydramine HCl (Diphenhydramine 25 Mg Cap) 25 mg PO BEDTIME PRN PRN Reason: Sleep Last Admin: 10/21/21 23:07 Dose: 25 mg Documented by: Furosemide (Furosemide 40 Mg/4 Ml Vial) 20 mg IVPUSH NOW ONE Stop: 10/20/21 20:56 Last Admin: 10/20/21 21:06 Dose: 20 mg Documented by: Furosemide (Furosemide 20 Mg Tab) 20 mg PO DAILY [facility] Last Admin: 10/21/21 11:13 Dose: Not Given Documented by: Furosemide (Furosemide 40 Mg/4 Ml Vial) 40 mg IVPUSH NOW ONE Stop: 10/21/21 10:26 Last Admin: 10/21/21 10:38 Dose: 40 mg Documented by: Potassium Chloride 40 meq/ (Premix) 100 mls @ 25 mls/hr IV ONETIME ONE Stop: 10/22/21 11:55 Last Admin: 10/22/21 08:26 Dose: 25 mls/hr Documented by: Sodium Chloride (Normal Saline) 250 mls @ 62.5 mls/hr IV 10/22/21@0900 [facility] Stop: 10/22/21 12:59 Last Admin: 10/22/21 08:26 Dose: 62.5 mls/hr Documented by: Lisinopril (Lisinopril 10 Mg Tab) 40 mg PO DAILY [facility] Last Admin: 10/22/21 08:25 Dose: 40 mg Documented by: Methylprednisolone Sodium Succinate (Methylprednisolone Sodium Succinate 125 Mg/2 Ml Sdv) 125 mg IVPUSH ONETIME ONE Stop: 10/20/21 21:16 Last Admin: 10/20/21 21:23 Dose: 125 mg Documented by: Methylprednisolone Sodium Succinate (Methylprednisolone Sodium Succinate 125 Mg/2 Ml Sdv) 125 mg IVPUSH Q24H [facility] Last Admin: 10/22/21 12:28 Dose: 125 mg Documented by: Potassium Chloride (Potassium Chloride 20 Meq Tab.Er) 40 meq PO ONETIME ONE Stop: 10/22/21 07:57 Last Admin: 10/22/21 08:39 Dose: 40 meq Documented by: - Patient Data Lab Results Last 24 hrs: Laboratory Results - last 24 hr 10/24/21 Range/Units 09:03 Sodium 141 (136-145) mmol/L Potassium 3.9 (3.5-5.1) mmol/L Chloride 105 (98-107) mmol/L Carbon Dioxide 23.9 (21.0-32.0) mmol/L BUN 52 H (7.0-18.0) mg/dL Creatinine 2.0 H (0.6-1.0) mg/dL Est Cr Clr Drug Dosing 16.92 mL/min Estimated GFR (MDRD) 24.2 ml/min Glucose 248 H (74-106) mg/dL Calcium 7.9 L (8.5-10.1) mg/dL Result Diagrams: 10/23/21 06:38 10/24/21 09:03 Sepsis Event Note - Focused Exam Vital Signs: Vital Signs Temp Pulse Pulse Resp BP BP Pulse Ox 10/24/21 08:31 64 124/62 10/24/21 08:30 124/62 10/24/21 04:00 97.3 F 61 22 H 121/59 L 95 10/24/21 00:00 97.7 F 65 19 101/59 L 92 L - My Orders Last 24 Hours: My Active Orders 10/23/21 09:56 Consult to Physical Therapy [PT Evaluation and Treatment] [CONS] Routine 10/23/21 12:01 RT Aerosol Therapy [RC] ASDIRECTED Albuterol/Ipratropium [DuoNeb 3.0-0.5 MG/3 ML] 3 ml NEB Q2H PRN 10/23/21 12:06 Flutter Valve Therapy [RT Chest Physiotherapy] [RC] Q2HWA 10/23/21 12:15 methylPREDNISolone Sod Succ [Solu-MEDROL] 80 mg IVPUSH Q8H 10/23/21 14:00 Albuterol/Ipratropium [DuoNeb 3.0-0.5 MG/3 ML] 3 ml NEB Q4HRRT - Plan Plan:: Seen and evaluated. I agree with the above assessment and plan Will keep pt inhouse for more nebs and steroids. She may require a few more days in the hospital.
[2021-10-23] MEDS: Azithromycin 500 MG in Sodium Chloride 0.9% 250 ML IV SCH (12:53)
[2021-10-23] MEDS: methylPREDNISolone Sodium Succinate 40 MG/1 ML SDV IVPUSH SCH ×2 (12:56→20:47)
[2021-10-23] MEDS: atorvaSTATin 40 MG Tab PO SCH (20:48)
[2021-10-23] MEDS: diphenhydrAMINE 50 MG Cap PO PRN (20:48)
[2021-10-24] MEDS: Albuterol/Ipratropium 3.0-0.5 MG/3 ML Neb Soln NEB SCH ×3 (02:16→09:34)
[2021-10-24] MEDS: methylPREDNISolone Sodium Succinate 40 MG/1 ML SDV IVPUSH SCH ×2 (04:15→13:06)
[2021-10-24] MEDS: Levothyroxine 75 MCG Tab PO SCH (06:36)
[2021-10-24] MEDS: amLODIPine 5 MG Tab PO SCH (08:30)
[2021-10-24] MEDS: Metoprolol Tartrate 50 MG Tab PO SCH (08:31)
[2021-10-24] MEDS: Rivaroxaban 15 MG Tab PO SCH (08:31)
[2021-10-24] MEDS: Ferrous Sulfate 325 MG Tab PO SCH (08:32)
[2021-10-24 09:23] LABS: CARBON DIOXIDE,CO2 23.9 mmol/L (21.0-32.0); POTASSIUM,K 3.9 mmol/L (3.5-5.1)
[2021-10-24] MEDS: Azithromycin 500 MG in Sodium Chloride 0.9% 250 ML IV SCH (13:07)
[2021-10-24 15:39] VITALS: BP 124/64; PULSE 81
--- NOTE | 2021-10-24 15:45 | PCM.DCSUM1 ---
Discharge Summary - Hospital Course Free Text/Narrative:: 75 yo F with a recent CABG, pacemaker placement , LUE DVT, and COPD admitted to the hospital with a COPD exacerbation and some fluid overload. She was given parenteral steroids and nebs. She was slow to improve but was finally able to go home with some oxygen to be used with activity. Condition on discharge: Pt was stable Activity: As tolerated. Diet: Regular Pt is to follow up with her PCP and [facility] in the next 1-2 wks. Physical Exam: General: Thin frail lady, In no acute distress. Easily runs out of breath with ambulation. CVS: S1S2 appreciated. RRR lungs: diminished bilaterally. no wheezes pa: soft, non tender. Bowel sounds present ext: No clubbing, cyanosis or edema Neuro: no focal deficits. psych: stable mood and affect. - Discharge Data Discharge Date: 10/24/21 Discharge Disposition: Home, Self-Care 01 Condition: Fair - Referral to Home Health Primary Care Physician: Leslie Justice MD - Patient Summary/Data Consults: Consultations 10/21/21 10:25 PT Evaluation and Treatment [CONS] Routine 10/23/21 09:56 Consult to Physical Therapy [PT Evaluation and Treatment] [CONS] Routine - Discharge Plan Home Medications: Home Meds Levothyroxine 75 mcg PO DAILY 07/14/16 [History] Cholecalciferol (Vitamin D3) [Vitamin D3] 5,000 units PO DAILY 01/12/21 [History] Ferrous Sulfate 325 mg PO BIDMEALS 10/02/21 [History] amLODIPine [Norvasc] 10 mg PO DAILY 10/02/21 [History] Acetaminophen 325 mg PO DAILY 10/20/21 [History] Furosemide [Lasix] 20 mg PO DAILY 10/20/21 [History] Rivaroxaban [Xarelto] 15 mg PO BID 10/20/21 [History] lisinopriL [Lisinopril] 40 mg PO DAILY 10/20/21 [History] Metoprolol Tartrate 75 mg PO BID 10/21/21 [History] atorvaSTATin [Lipitor] 40 mg PO BEDTIME 10/21/21 [History] Patient Handouts: Hypoxia, Acute Bronchitis, Adult, [id number] Referrals: Arash Webb MD [Physician] - 10/26/21 9:30 am (DR. Kemp is fully booked until November.) Nazario Case MD [Consulting Physician] - 10/25/21 11:00 am (For wound jennifer ck,pacer check.) - Discharge Summary/Plan Comment DC Time >30 min.: Yes Total # of Minutes for Discharge Time: 35 mins - Patient Data Vitals - Most Recent: Last Vital Signs Temp 98.9 F 10/24/21 08:00 Pulse 64 10/24/21 08:31 Resp 18 10/24/21 08:00 BP 124/62 10/24/21 08:31 Pulse Ox 95 10/24/21 08:00 Weight - Most Recent: 111 lb 9.6 oz I&O - Last 24 hours: Intake & Output 10/24/21 10/24/21 10/24/21 06:59 14:59 22:59 Intake Total 450 Output Total 550 Balance -100 Lab Results - Last 24 hrs: Laboratory Results - last 24 hr 10/24/21 Range/Units 09:03 Sodium 141 (136-145) mmol/L Potassium 3.9 (3.5-5.1) mmol/L Chloride 105 (98-107) mmol/L Carbon Dioxide 23.9 (21.0-32.0) mmol/L BUN 52 H (7.0-18.0) mg/dL Creatinine 2.0 H (0.6-1.0) mg/dL Est Cr Clr Drug Dosing 16.92 mL/min Estimated GFR (MDRD) 24.2 ml/min Glucose 248 H (74-106) mg/dL Calcium 7.9 L (8.5-10.1) mg/dL Med Orders - Current: Current Medications Albuterol/Ipratropium (Albuterol/Ipratropium 3.0-0.5 Mg/3 Ml Neb Soln) 3 ml NEB Q2H PRN PRN Reason: Dyspnea Albuterol/Ipratropium (Albuterol/Ipratropium 3.0-0.5 Mg/3 Ml Neb Soln) 3 ml NEB Q4HRRT [facility] Last Admin: 10/24/21 09:34 Dose: 3 ml Documented by: Amlodipine Besylate (Amlodipine 5 Mg Tab) 10 mg PO DAILY [facility] Last Admin: 10/24/21 08:30 Dose: 10 mg Documented by: Atorvastatin Calcium (Atorvastatin 40 Mg Tab) 40 mg PO BEDTIME [facility] Last Admin: 10/23/21 20:48 Dose: 40 mg Documented by: Diphenhydramine HCl (Diphenhydramine 50 Mg Cap) 50 mg PO BEDTIME PRN PRN Reason: Insomnia Last Admin: 10/23/21 20:48 Dose: 50 mg Documented by: Ferrous Sulfate (Ferrous Sulfate 325 Mg Tab) 325 mg PO BIDMEALS [facility] Last Admin: 10/24/21 08:32 Dose: 325 mg Documented by: Sodium Chloride (Normal Saline) 500 mls @ 999 mls/hr IV .BOLUS [facility] Last Admin: 10/20/21 18:30 Dose: 999 mls/hr Documented by: Azithromycin 500 mg/ Sodium (Chloride) 250 mls @ 250 mls/hr IV Q24H [facility] Last Admin: 10/24/21 13:07 Dose: 250 mls/hr Documented by: Levothyroxine Sodium (Levothyroxine 75 Mcg Tab) 75 mcg PO ACBREAKFAST [facility] Last Admin: 10/24/21 06:36 Dose: 75 mcg Documented by: Melatonin (Melatonin 3 Mg Tab) 6 mg PO BEDTIME PRN PRN Reason: Insomnia Methylprednisolone Sodium Succinate (Methylprednisolone Sodium Succinate 40 Mg/1 Ml Sdv) 80 mg IVPUSH Q8H [facility] Last Admin: 10/24/21 13:06 Dose: 80 mg Documented by: Metoprolol Tartrate (Metoprolol Tartrate 50 Mg Tab) 75 mg PO BID [facility] Last Admin: 10/24/21 08:31 Dose: 75 mg Documented by: Rivaroxaban (Rivaroxaban 15 Mg Tab) 15 mg PO BID [facility] Last Admin: 10/24/21 08:31 Dose: 15 mg Documented by: Sodium Chloride (Sodium Chloride 0.9% 10 Ml Syringe) 10 ml FLUSH ASDIRECTED PRN PRN Reason: Keep Vein Open Last Admin: 10/20/21 18:28 Dose: 10 ml Documented by: Sodium Chloride (Sodium Chloride 0.9% 2.5 Ml Syringe) 2.5 ml FLUSH ASDIRECTED PRN PRN Reason: Keep Vein Open Last Admin: 10/20/21 18:29 Dose: 2.5 ml Documented by: Discontinued Medications Albuterol/Ipratropium (Albuterol/Ipratropium 3.0-0.5 Mg/3 Ml Neb Soln) 3 ml NEB ONETIME ONE Stop: 12/17/21 18:06 Last Admin: 10/20/21 18:28 Dose: 3 ml Documented by: Albuterol/Ipratropium (Albuterol/Ipratropium 3.0-0.5 Mg/3 Ml Neb Soln) 3 ml NEB ONETIME ONE Stop: 10/20/21 19:30 Last Admin: 10/20/21 19:59 Dose: 3 ml Documented by: Albuterol/Ipratropium (Albuterol/Ipratropium 3.0-0.5 Mg/3 Ml Neb Soln) 3 ml NEB Q6HRRT [facility] Last Admin: 10/23/21 22:23 Dose: Not Given Documented by: Amiodarone HCl (Amiodarone 200 Mg Tab) 200 mg PO DAILY [facility] Aspirin (Aspirin 81 Mg Tab.Chew) 81 mg PO DAILY [facility] Diphenhydramine HCl (Diphenhydramine 25 Mg Cap) 25 mg PO BEDTIME PRN PRN Reason: Sleep Last Admin: 10/21/21 23:07 Dose: 25 mg Documented by: Furosemide (Furosemide 40 Mg/4 Ml Vial) 20 mg IVPUSH NOW ONE Stop: 10/20/21 20:56 Last Admin: 10/20/21 21:06 Dose: 20 mg Documented by: Furosemide (Furosemide 20 Mg Tab) 20 mg PO DAILY [facility] Last Admin: 10/21/21 11:13 Dose: Not Given Documented by: Furosemide (Furosemide 40 Mg/4 Ml Vial) 40 mg IVPUSH NOW ONE Stop: 10/21/21 10:26 Last Admin: 10/21/21 10:38 Dose: 40 mg Documented by: Potassium Chloride 40 meq/ (Premix) 100 mls @ 25 mls/hr IV ONETIME ONE Stop: 10/22/21 11:55 Last Admin: 10/22/21 08:26 Dose: 25 mls/hr Documented by: Sodium Chloride (Normal Saline) 250 mls @ 62.5 mls/hr IV 10/22/21@0900 [facility] Stop: 10/22/21 12:59 Last Admin: 10/22/21 08:26 Dose: 62.5 mls/hr Documented by: Lisinopril (Lisinopril 10 Mg Tab) 40 mg PO DAILY [facility] Last Admin: 10/22/21 08:25 Dose: 40 mg Documented by: Methylprednisolone Sodium Succinate (Methylprednisolone Sodium Succinate 125 Mg/2 Ml Sdv) 125 mg IVPUSH ONETIME ONE Stop: 10/20/21 21:16 Last Admin: 10/20/21 21:23 Dose: 125 mg Documented by: Methylprednisolone Sodium Succinate (Methylprednisolone Sodium Succinate 125 Mg/2 Ml Sdv) 125 mg IVPUSH Q24H [facility] Last Admin: 10/22/21 12:28 Dose: 125 mg Documented by: Potassium Chloride (Potassium Chloride 20 Meq Tab.Er) 40 meq PO ONETIME ONE Stop: 10/22/21 07:57 Last Admin: 10/22/21 08:39 Dose: 40 meq Documented by:
== END 2021-10-24 17:25 | disposition home or self-care (01) | DRG 191 ==
LOC: MW.ED 17:10 → MW.MS 21:17 → OBSVTOIN 10-23 12:01 → MW.MS 10-23 14:32
PROVIDERS: ADMIT Internal Medicine; ATTEND Internal Medicine
DX: J44.1 Chronic obstructive pulmonary disease with (acute) exacerbation (principal); N17.9 Acute kidney failure, unspecified; R09.02 Hypoxemia; I50.810 Right heart failure, unspecified; E78.00 Pure hypercholesterolemia, unspecified; I73.9 Peripheral vascular disease, unspecified; J45.909 Unspecified asthma, uncomplicated; N18.9 Chronic kidney disease, unspecified; F41.9 Anxiety disorder, unspecified; F32.A Depression, unspecified; M81.0 Age-related osteoporosis without current pathological fracture; E03.9 Hypothyroidism, unspecified; E55.9 Vitamin D deficiency, unspecified; J20.9 Acute bronchitis, unspecified; I65.29 Occlusion and stenosis of unspecified carotid artery; Z90.49 Acquired absence of other specified parts of digestive tract; Z95.1 Presence of aortocoronary bypass graft; Z86.718 Personal history of other venous thrombosis and embolism; Z79.01 Long term (current) use of anticoagulants; Z79.890 Hormone replacement therapy; Z20.822 Contact with and (suspected) exposure to COVID-19; Z79.899 Other long term (current) drug therapy; Z90.710 Acquired absence of both cervix and uterus; Z86.73 Personal history of transient ischemic attack (TIA), and cerebral infarction without residual deficits; Z79.82 Long term (current) use of aspirin; Z85.72 Personal history of non-Hodgkin lymphomas; Z79.02 Long term (current) use of antithrombotics/antiplatelets; Z95.0 Presence of cardiac pacemaker; I25.10 Atherosclerotic heart disease of native coronary artery without angina pectoris
CPT/HCPCS: 0240U; 36415; 71045; 80048; 80053; 81003; 83605; 83880; 84484; 85025; 93005; 94640; 94668; 97161; 97165; 97530; 99285; 96374; 96375; 96376; A9270-GY; G0378; J0456; J1940; J2920; J2930; J3480; J7040; J7050; J7620-GY

== ENCOUNTER 2022-06-05 11:16 | Day surgery (SDC) | payer MEDICARE, BC ==
[~2022-06-05 11:16] MED LIST changes: -Lidocaine 2% 5 ML SDV ONE; -Propofol 200 MG/20 ML SDV ONE; -Sodium Chloride 0.9% 10 ML SDV IV PRN; +Sodium Chloride 0.9% 20 ML SDV IV PRN; -fentaNYL 100 MCG/2 ML SDV ONE
[2022-06-05] MEDS ORDERED: Lidocaine 2% 5 ML SDV ONE (12:20)
[2022-06-05] MEDS ORDERED: Propofol 200 MG/20 ML SDV ONE (12:21)
[2022-06-05] MEDS ORDERED: fentaNYL 100 MCG/2 ML SDV ONE (12:21)
[2022-06-05 14:23] VITALS: BP 149/72; PULSE 65
== END 2022-06-05 13:30 | disposition home or self-care (01) ==
LOC: MW.SDS 11:16
PROVIDERS: ATTEND Surgery
DX: K29.50 Unspecified chronic gastritis without bleeding (principal); D64.9 Anemia, unspecified; K31.89 Other diseases of stomach and duodenum; K31.819 Angiodysplasia of stomach and duodenum without bleeding; J44.9 Chronic obstructive pulmonary disease, unspecified; Z87.891 Personal history of nicotine dependence; F41.9 Anxiety disorder, unspecified; N18.9 Chronic kidney disease, unspecified; I12.9 Hypertensive chronic kidney disease with stage 1 through stage 4 chronic kidney disease, or unspecified chronic kidney disease; E03.9 Hypothyroidism, unspecified; G47.00 Insomnia, unspecified; M81.0 Age-related osteoporosis without current pathological fracture; E78.00 Pure hypercholesterolemia, unspecified; E55.9 Vitamin D deficiency, unspecified; Z90.81 Acquired absence of spleen; Z86.73 Personal history of transient ischemic attack (TIA), and cerebral infarction without residual deficits; Z79.899 Other long term (current) drug therapy; Z79.890 Hormone replacement therapy; Z90.49 Acquired absence of other specified parts of digestive tract; Z98.890 Other specified postprocedural states; Z88.8 Allergy status to other drugs, medicaments and biological substances
CPT/HCPCS: 43239; 82947; J2704; J3010; J7120; 00731; 88305; 88342; 99100

== ENCOUNTER 2023-12-14 14:08 | Emergency (ER) | payer MEDICARE, BC ==
[2023-12-14] MEDS ORDERED: Sodium Chloride 0.9% 20 ML SDV IV PRN (14:27)
[2023-12-14] MEDS ORDERED: Sodium Chloride 0.9% 2.5 ML Syringe FLUSH PRN (14:27)
[2023-12-14] MEDS ORDERED: Sodium Chloride 0.9% 10 ML Syringe FLUSH PRN (14:27)
[2023-12-14 14:34] LABS: BASOPHILS ABSOLUTE AUTO 0.05 K/uL (0.00-0.20); BASOPHILS PERCENT AUTO 0.5 % (0.0-1.0); EOSINOPHILS ABSOLUTE AUTO 0.12 K/uL (0.00-0.45); EOSINOPHILS PERCENT AUTO 1.2 % (0.0-6.0); HEMATOCRIT 43.4 % (37.0-47.0); HEMOGLOBIN 14.1 g/dL (12.0-16.0); IMMATURE GRAN ABSOLUTE AUTO 0.05 K/uL (0.00-0.05); IMMATURE GRAN PERCENT AUTO 0.5 % (0.0-0.4); LYMPHOCYTES ABSOLUTE AUTO 3.51 K/uL (1.00-4.80); LYMPHOCYTES PERCENT AUTO 35.1 % (24.0-44.0); MEAN CORPUSCULAR HEMOGLOBIN 29.9 pg (28.0-32.0); MEAN CORPUSCULAR HGB CONC 32.5 g/dL (32.0-36.0); MEAN CORPUSCULAR VOLUME 92.1 fL (83.0-99.0); MEAN PLATELET VOLUME 10.7 fL (9.4-12.3); NEUTROPHILS ABSOLUTE AUTO 5.46 K/uL (1.80-7.70); NEUTROPHILS PERCENT AUTO 54.7 % (41.0-71.0); PLATELET COUNT,PLT 306 K/uL (150-400); RED BLOOD CELL COUNT 4.71 M/uL (4.10-5.30); WHITE BLOOD CELL COUNT,WBC 9.99 K/uL (3.9-11.3)
[2023-12-14 14:55] LABS: INR 1.01 (0.86-1.11); PTT,PARTIAL THROMBOPLSTIN TIME 27.9 SEC (23.9-30.7)
[2023-12-14 15:03] LABS: A/G RATIO 1.1 (0.9-1.6); ALBUMIN 4.3 g/dL (3.4-5.0); BILIRUBIN TOTAL 1.1 mg/dL (0.2-1.0); CALCIUM 8.3 mg/dL (8.5-10.1); CARBON DIOXIDE,CO2 26.5 mmol/L (21.0-32.0); CREATININE 1.4 mg/dL (0.6-1.0); EST CRCL DRUG DOSING (CG) 23.02 mL/min; POTASSIUM,K 3.8 mmol/L (3.5-5.1); PROTEIN TOTAL,TP 8.3 g/dL (6.4-8.2)
[2023-12-14 16:35] VITALS: BP 101/58; PULSE 60
== END 2023-12-14 17:00 ==
LOC: MW.ED 14:08
DX: I63.9 Cerebral infarction, unspecified (principal); E78.00 Pure hypercholesterolemia, unspecified; N18.9 Chronic kidney disease, unspecified; E03.9 Hypothyroidism, unspecified; Z95.0 Presence of cardiac pacemaker; Z79.02 Long term (current) use of antithrombotics/antiplatelets; Z79.899 Other long term (current) drug therapy; Z88.8 Allergy status to other drugs, medicaments and biological substances
CPT/HCPCS: 36415; 70450; 70450-26; 70496; 70496-26; 70498; 70498-26; 80053; 82947; 85025; 85610; 85730; 93005; 99285

== ENCOUNTER 2023-12-26 17:40 | Emergency (ER) | payer MEDICARE, BC ==
[2023-12-26 18:30] VITALS: BP 142/78
[2023-12-26] MEDS: Sodium Chloride 0.9% 2.5 ML Syringe FLUSH PRN (19:33)
[2023-12-26] MEDS: Sodium Chloride 0.9% 10 ML Syringe FLUSH PRN (19:33)
[2023-12-26 19:40] LABS: HEMATOCRIT 37.9 % (37.0-47.0); HEMOGLOBIN 12.7 g/dL (12.0-16.0); MEAN CORPUSCULAR HEMOGLOBIN 29.6 pg (28.0-32.0); MEAN CORPUSCULAR HGB CONC 33.5 g/dL (32.0-36.0); MEAN CORPUSCULAR VOLUME 88.3 fL (83.0-99.0); MEAN PLATELET VOLUME 11.6 fL (9.4-12.3); PLATELET COUNT,PLT 304 K/uL (150-400); RED BLOOD CELL COUNT 4.29 M/uL (4.10-5.30); WHITE BLOOD CELL COUNT,WBC 13.03 K/uL (3.9-11.3)
[2023-12-26 20:04] LABS: A/G RATIO 0.9 (0.9-1.6); ALBUMIN 3.5 g/dL (3.4-5.0); BILIRUBIN TOTAL 0.8 mg/dL (0.2-1.0); CALCIUM 8.8 mg/dL (8.5-10.1); CARBON DIOXIDE,CO2 25.9 mmol/L (21.0-32.0); EST CRCL DRUG DOSING (CG) 32.16 mL/min; POTASSIUM,K 3.6 mmol/L (3.5-5.1); PROTEIN TOTAL,TP 7.5 g/dL (6.4-8.2)
[2023-12-26 20:07] LABS: CORONAVIRUS COVID-19 NAA NEGATIVE (NEGATIVE); INFLUENZA A NAA NEGATIVE (NEGATIVE); INFLUENZA B NAA NEGATIVE (NEGATIVE); RESPIRATORY SYNCYTIAL VIR NAA NEGATIVE (NEGATIVE)
[2023-12-26 20:13] LABS: BAND ABSOLUTE MAN 0.13; BAND PERCENT MAN 1 %; LYMPHOCYTES ABSOLUTE MAN 2.87 K/uL (1.00-4.80); LYMPHOCYTES PERCENT MAN 22 % (24-44); MONOCYTES ABSOLUTE MAN 2.22 K/uL (0.00-0.80); MONOCYTES PERCENT MAN 17 % (0-8); SEG NEUTROPHILS ABSOLUTE MAN 7.82 K/uL (1.80-7.70); SEG NEUTROPHILS PERCENT MAN 60 % (41-71)
[2023-12-26 20:14] LABS: MAGNESIUM 2.1 mg/dL (1.8-2.4); TSH ULTRASENSITIVE 3.6 uIU/mL (0.36-3.74)
[2023-12-26 20:58] VITALS: PULSE 74
== END 2023-12-26 20:56 | disposition home or self-care (01) ==
LOC: MW.ED 17:40
DX: R53.1 Weakness (principal); I12.9 Hypertensive chronic kidney disease with stage 1 through stage 4 chronic kidney disease, or unspecified chronic kidney disease; N18.9 Chronic kidney disease, unspecified; E03.9 Hypothyroidism, unspecified; E78.00 Pure hypercholesterolemia, unspecified; Z79.82 Long term (current) use of aspirin; Z79.02 Long term (current) use of antithrombotics/antiplatelets; Z79.899 Other long term (current) drug therapy; Z88.8 Allergy status to other drugs, medicaments and biological substances; Z95.1 Presence of aortocoronary bypass graft; Z86.73 Personal history of transient ischemic attack (TIA), and cerebral infarction without residual deficits
CPT/HCPCS: 0241U; 36415; 71045; 80053; 83690; 83735; 84443; 84484; 85025; 99285; J3490; 93010; 99282

== ENCOUNTER 2025-09-22 15:55 | Emergency (ER) | payer MEDICARE, BC ==
[2025-09-22 17:55] VITALS: BP 146/99; PULSE 63
== END 2025-09-22 17:54 | disposition home or self-care (01) ==
LOC: MW.ED 15:55
DX: S42.211A Unspecified displaced fracture of surgical neck of right humerus, initial encounter for closed fracture (principal); E78.00 Pure hypercholesterolemia, unspecified; Z88.8 Allergy status to other drugs, medicaments and biological substances; Z79.899 Other long term (current) drug therapy; Z79.890 Hormone replacement therapy; Z79.82 Long term (current) use of aspirin; W18.30XA Fall on same level, unspecified, initial encounter
CPT/HCPCS: 73030-26-RT; 73030-RT; 73060-26-RT; 73060-RT; 99283

== ENCOUNTER 2025-10-04 13:48 | Observation (INO) | payer MEDICARE, BC ==
[2025-10-04] MEDS ORDERED: Sodium Chloride 0.9% 2.5 ML Syringe FLUSH PRN ×2 (14:11→18:34)
[2025-10-04] MEDS ORDERED: Sodium Chloride 0.9% 10 ML Syringe FLUSH PRN ×2 (14:11→18:34)
[2025-10-04 15:55] LABS: MEAN PLATELET VOLUME 11.8 fL (9.4-12.3); NRBC ABSOLUTE 0.00 K/uL (0.00-0.02); NRBC PERCENT 0.0 /100WBC (0.0-0.2); PLATELET COUNT,PLT 403 K/uL (150-400); RED BLOOD CELL COUNT 3.58 M/uL (4.10-5.30); WHITE BLOOD CELL COUNT,WBC 20.15 K/uL (3.9-11.3)
[2025-10-04 16:29] LABS: A/G RATIO 0.9 (0.9-1.6); ALANINE AMINOTRANSFERASE,ALT 23.0 IU/L (14-63); ASPARTATE AMNIOTRANSFERASE,AST 24.0 IU/L (15-37); BILIRUBIN TOTAL 0.7 mg/dL (0.2-1.0); BLOOD UREA NITROGEN,BUN 23.0 mg/dL (7.0-18.0); CARBON DIOXIDE,CO2 28.1 mmol/L (21.0-32.0); CHLORIDE,CL 104.0 mmol/L (98-107); CREATININE 1.1 mg/dL (0.6-1.0); EST CRCL DRUG DOSING (CG) 27.86 mL/min; ESTIMATED GFR 50.0 mL/min (>60); GLUCOSE RANDOM 121.0 mg/dL (74-106); POTASSIUM,K 4.2 mmol/L (3.5-5.1); PROTEIN TOTAL,TP 7.7 g/dL (6.4-8.2); SODIUM,NA 141.0 mmol/L (136-145)
[2025-10-04] MEDS: Iopamidol 755 MG/ML 500 ML Multipack Bottle IVPUSH STA (16:47)
[2025-10-04 17:01] LABS: LYMPHOCYTES ABSOLUTE MAN 0.81 K/uL (1.00-4.80); LYMPHOCYTES PERCENT MAN 4 % (24-44); MONOCYTES ABSOLUTE MAN 1.01 K/uL (0.00-0.80); MONOCYTES PERCENT MAN 5 % (0-8); SEG NEUTROPHILS ABSOLUTE MAN 18.34 K/uL (1.80-7.70); SEG NEUTROPHILS PERCENT MAN 91 % (41-71)
[2025-10-04 17:19] LABS: APPEARANCE,URINE CLEAR; GLUCOSE,URINE NEGATIVE (NEGATIVE); OCCULT BLOOD,URINE TRACE-INTACT (NEGATIVE)
[2025-10-04 17:29] LABS: EPITHELIAL CELLS,URINE RARE (NONE-FEW)
[2025-10-04 19:41] LABS: LACTIC ACID 1.4 mmol/L (0.4-2.0)
[2025-10-04] MEDS: cefTRIAXone 1 GM in Water For Injection, Sterile 10 ML IVPUSH SCH (20:43)
[2025-10-04] MEDS: Acetaminophen/HYDROcodone 325-5 MG Tab PO ONE (20:43)
[2025-10-04] MEDS: metroNIDAZOLE/Normal Saline 500 MG in Premix Bag 1 BAG IV SCH (20:43)
[2025-10-04 22:34] LABS: CORONAVIRUS COVID-19 NAA NEGATIVE (NEGATIVE); INFLUENZA A NAA NEGATIVE (NEGATIVE); INFLUENZA B NAA NEGATIVE (NEGATIVE)
[2025-10-05 05:57] LABS: MEAN PLATELET VOLUME 11.9 fL (9.4-12.3); NRBC ABSOLUTE 0.00 K/uL (0.00-0.02); NRBC PERCENT 0.0 /100WBC (0.0-0.2); PLATELET COUNT,PLT 319 K/uL (150-400); RED BLOOD CELL COUNT 3.24 M/uL (4.10-5.30); WHITE BLOOD CELL COUNT,WBC 16.54 K/uL (3.9-11.3)
[2025-10-05 06:20] LABS: A/G RATIO 0.8 (0.9-1.6); ALANINE AMINOTRANSFERASE,ALT 20.0 IU/L (14-63); ASPARTATE AMNIOTRANSFERASE,AST 24.0 IU/L (15-37); BILIRUBIN TOTAL 0.7 mg/dL (0.2-1.0); BLOOD UREA NITROGEN,BUN 14.0 mg/dL (7.0-18.0); CARBON DIOXIDE,CO2 25.9 mmol/L (21.0-32.0); CHLORIDE,CL 109.0 mmol/L (98-107); CREATININE 0.8 mg/dL (0.6-1.0); EST CRCL DRUG DOSING (CG) 39.61 mL/min; GLUCOSE RANDOM 84.0 mg/dL (74-106); POTASSIUM,K 3.2 mmol/L (3.5-5.1); PROTEIN TOTAL,TP 6.4 g/dL (6.4-8.2); SODIUM,NA 144.0 mmol/L (136-145)
[2025-10-05 06:23] LABS: ESTIMATED GFR 74.0 mL/min (>60)
[2025-10-05 06:41] LABS: BAND ABSOLUTE MAN 0.99; BAND PERCENT MAN 6 %; LYMPHOCYTES ABSOLUTE MAN 2.98 K/uL (1.00-4.80); LYMPHOCYTES PERCENT MAN 18 % (24-44); SEG NEUTROPHILS ABSOLUTE MAN 11.41 K/uL (1.80-7.70); SEG NEUTROPHILS PERCENT MAN 69 % (41-71)
[2025-10-05 06:42] LABS: EOSINOPHILS ABSOLUTE MAN 0.17 K/uL (0.00-0.45); EOSINOPHILS PERCENT MAN 1 % (0-6); MONOCYTES ABSOLUTE MAN 0.99 K/uL (0.00-0.80); MONOCYTES PERCENT MAN 6 % (0-8)
[2025-10-05 11:58] VITALS: BP 134/55; PULSE 67
== END 2025-10-05 13:18 | disposition home or self-care (01) ==
LOC: MW.ED 13:48 → MW.MS 18:29
PROVIDERS: ADMIT Internal Medicine; ATTEND Internal Medicine
DX: D72.829 Elevated white blood cell count, unspecified (principal); E03.9 Hypothyroidism, unspecified; N18.9 Chronic kidney disease, unspecified; E78.00 Pure hypercholesterolemia, unspecified; F41.9 Anxiety disorder, unspecified; F32.A Depression, unspecified; Z87.891 Personal history of nicotine dependence; Z88.8 Allergy status to other drugs, medicaments and biological substances; Z88.5 Allergy status to narcotic agent; Z79.890 Hormone replacement therapy; Z79.82 Long term (current) use of aspirin; Z79.899 Other long term (current) drug therapy
CPT/HCPCS: 36415; 70450; 71045; 74177; 80053; 81001; 83605; 83690; 83735; 84484; 85025; 85652; 86140; 87040; 87636; 93005; 96361; 96365; 96366; 96372; 96375; 97110; 97161; 97165; 99285; A9270; G0378; J0696; J1650; J7030; Q9967; 73030-26-RT; 73030-RT; 93010; 96360; 99222; 99239; J1836